=== PATIENT | female | born 1935 | race Caucasian/White ===

== ENCOUNTER 2016-11-30 17:44 | Emergency (ER) | payer OTHER ==
[2016-11-30 17:53] VITALS: BP 110/61; PULSE 83; TEMP 98.1; BMI 25.2
--- NOTE | 2016-11-30 18:04 | PDOC ---
History of Present Illness - General History Source: Patient, Old Records Exam Limitations: Other (very poor historian) <Paola Uriarte - Last Filed: 11/30/16 18:16> - General History Source: Patient Exam Limitations: No Limitations - History of Present Illness Initial Comments: 11/30/16 18:27 The patient is an 81 year old female with history of hypertension s/p thyroidectomy who arrives to the ED via EMS secondary to mechanical fall two days ago. The patient states that she was in the bathroom and moving faster than she normally does and became off balanced and fell down, hitting the back of her head on her bathroom floor. She denies going to the ED following the fall. In the ED she complains right sided neck pain and denies any LOC. However , she did not go to the ED afterwards. She denies any fever, chills, nausea, vomiting, diarrhea, cough, SOB, CP, or urinary symptoms. <Priscila Wilkinson - Last Filed: 11/30/16 20:06> - General Chief Complaint: Injury Stated Complaint: FALL Time Seen by Provider: 11/30/16 17:47 Past History - Past Medical History Psychiatric Problems: Yes Thyroid Disease: Yes - Psycho/Social/Smoking Cessation Hx Anxiety: Yes Suicidal Ideation: No Smoking History: Unknown if ever smoked Hx Alcohol Use: No Drug/Substance Use Hx: No Substance Use Type: None <Paola Uriarte - Last Filed: 11/30/16 18:16> <Priscila Wilkinson - Last Filed: 11/30/16 20:06> - Past Medical History Allergies/Adverse Reactions: Allergies Allergy/AdvReac Type Severity Reaction Status Date / Time cheese Allergy Verified 11/30/16 17:46 Home Medications: Ambulatory Orders Bethanechol Chloride [Urecholine -] 25 mg PO BID 11/30/16 Bimatoprost [Lumigan] 1 drop IO DAILY 11/30/16 Brinzolamide [Azopt] 15 ml OP BID 11/30/16 Clonazepam [Klonopin] 1 mg PO HS 11/30/16 Lamotrigine [Lamictal Xr] 75 mg PO HS 11/30/16 Levothyroxine [Synthroid -] 112 mcg PO DAILY 11/30/16 Lidocaine 5% Patch [Lidoderm Patch -] 1 patch TP DAILY 11/30/16 Phenelzine Sulfate [Nardil] 45 mg PO DAILY 11/30/16 Ranitidine HCl [Zantac] 150 mg PO BID 11/30/16 Trazodone HCl [Desyrel -] 250 mg PO HS 11/30/16 Review of Systems - Review of Systems Able to Perform ROS?: Yes Comments:: 11/30/16 18:35 GENERAL/CONSTITUTIONAL: No fever or chills. No weakness. HEAD, EYES, EARS, NOSE AND THROAT: No change in vision. No ear pain or discharge. No sore throat. CARDIOVASCULAR: No chest pain or shortness of breath. RESPIRATORY: No cough, wheezing, or hemoptysis. GASTROINTESTINAL: No nausea, vomiting, diarrhea or constipation. GENITOURINARY: No dysuria, frequency, or change in urination. MUSCULOSKELETAL: Present: right sided neck pain No joint or muscle swelling or pain. No back pain. SKIN: No rash NEUROLOGIC: No headache, vertigo, loss of consciousness, or change in strength/ sensation. ENDOCRINE: No increased thirst. No abnormal weight change. HEMATOLOGIC/LYMPHATIC: No anemia, easy bleeding, or history of blood clots. ALLERGIC/IMMUNOLOGIC: No hives or skin allergy. All Other Systems: Reviewed and Negative <Priscila Wilkinson - Last Filed: 11/30/16 20:06> *Physical Exam - Vital Signs Last Vital Signs Temp Pulse Resp BP Pulse Ox 98.1 F 83 16 110/61 99 11/30/16 17:45 11/30/16 17:45 11/30/16 17:45 11/30/16 17:45 11/30/16 17:45 <Paola Uriarte - Last Filed: 11/30/16 18:16> - Vital Signs Last Vital Signs Temp Pulse Resp BP Pulse Ox 98.1 F 83 16 110/61 99 11/30/16 17:45 11/30/16 17:45 11/30/16 17:45 11/30/16 17:45 11/30/16 17:45 - Physical Exam Comments: 11/30/16 18:36 GENERAL: Awake, alert, and fully oriented, in no acute distress HEAD: No signs of trauma EYES: PERRLA, EOMI, sclera anicteric, conjunctiva clear ENT: Auricles normal inspection, hearing grossly normal, nares patent, oropharynx clear without exudates. Moist mucosa NECK: Normal ROM, supple, no lymphadenopathy, JVD, or masses LUNGS: Breath sounds equal, clear to auscultation bilaterally. No wheezes, and no crackles HEART: Regular rate and rhythm, normal S1 and S2, no murmurs, rubs or gallops ABDOMEN: Soft, nontender, normoactive bowel sounds. No guarding, no rebound. No masses EXTREMITIES: Normal range of motion, no edema. No clubbing or cyanosis. No cords, erythema, or tenderness NEUROLOGICAL: Cranial nerves II through XII grossly intact. Normal speech, normal gait SKIN: Warm, Dry, normal turgor, no rashes or lesions noted. <Priscila Wilkinson - Last Filed: 11/30/16 20:06> ED Treatment Course - LABORATORY CBC & Chemistry Diagram: 11/30/16 18:17 11/30/16 18:17 - RADIOLOGY Radiograph Interpretation: 11/30/16 20:06 Head and C-spine CT as reviewed by Dr. Wan reports no acute pathology/ hemorrhage. <Priscila Wilkinson - Last Filed: 11/30/16 20:06> Medical Decision Making - Medical Decision Making 11/30/16 18:16 81 y/o female with h/o HTN, thyroid disease who presents to the ED with c/o right-sided neck pain s/p mechanical fall 2 days ago. She is neurologically non -focal and her GCS is 15. DDx includes but is not limited to: C-spine injury, TBI, UTI, PNA, electrolyte abnormality, toxic/metabolic derangement. Plan: 1. CT head and cervical spine 2. CXR 3. Urine analysis 4. Labs 5. Pain management 6. Observe and re-evaluate <Paola Uriarte - Last Filed: 11/30/16 18:16> *DC/Admit/Observation/Transfer - Attestations Physician Attestion: 11/30/16 18:21 I, Dr. Paola Uriarte, attest that the scribes documentation that appears above has been prepared under my direction and personally reviewed by me in its entirety. I confirmed that the note above accurately reflects all work, treatment, procedures, and medical decision-making performed by me. <Paola Uriarte - Last Filed: 11/30/16 18:16> - Attestations Scribe Attestion: 11/30/16 18:36 Documentation prepared by Priscila Wilkinson, acting as medical nurse for Paola Uriarte MD. <Priscila Wilkinson - Last Filed: 11/30/16 20:06> Diagnosis at time of Disposition: Neck pain, Fall - Discharge Dispostion Condition at time of disposition: Stable
[2016-11-30 18:39] LABS: WHITE BLOOD COUNT 6.6 K/mm3 (4.0-10.8)
[2016-11-30 18:49] LABS: EOSINOPHIL 0.1 % (0-4.5); MCH 27.9 pg (25.7-33.7); MCHC 32.8 g/dl (32.0-36.0); MEAN CELL VOLUME 84.9 fl (80-96); NEUTROPHILS 64.9 % (42.8-82.8); PLATELET COUNT 261 K/MM3 (134-434); RDW 13.6 % (11.6-15.6)
[2016-11-30 18:55] LABS: ALBUMIN 4.1 g/dl (3.5-5.0); ALK PHOS 66 U/L (32-92); ANION GAP 6 (8-16); BILIRUBIN,TOTAL 0.8 mg/dl (0.2-1.0); CALCIUM 9.3 mg/dl (8.4-10.2); CO2 30 mmol/L (22-28); CREATININE 0.7 mg/dl (0.6-1.3); GLUCOSE,RANDOM 88 mg/dl (74-106); MAGNESIUM 1.7 mg/dL (1.8-2.4); PHOSPHOROUS 3.4 mg/dl (2.5-4.6); SGOT/AST 18 U/L (10-42); SGPT/ALT 10 U/L (10-40); TOT PROT 6.3 g/dl (6.4-8.3)
[2016-11-30 18:58] LABS: CPK(DFH) 171 IU/L (26-140)
[2016-11-30 19:11] LABS: TROPONIN I (DFP) < 0.03 ng/ml (0.03-0.50)
[2016-11-30 19:52] LABS: CK INDEX FOR DOBBS 2.7 % (0.0-5.0)
--- NOTE | 2016-11-30 20:13 | PDOC ---
*Physical Exam - Vital Signs Last Vital Signs Temp Pulse Resp BP Pulse Ox 98.1 F 83 16 110/61 99 11/30/16 17:45 11/30/16 17:45 11/30/16 17:45 11/30/16 17:45 11/30/16 17:45 ED Treatment Course - LABORATORY CBC & Chemistry Diagram: 11/30/16 18:17 11/30/16 18:17 - ADDITIONAL ORDERS Additional order review: Laboratory Results 11/30/16 11/30/16 18:17 18:17 Sodium 136 Potassium 4.0 Chloride 100 Carbon Dioxide 30 H Anion Gap 6 L BUN 23 H Creatinine 0.7 Creat Clearance w eGFR > 60 Random Glucose 88 Calcium 9.3 Phosphorus 3.4 Magnesium 1.7 L Total Bilirubin 0.8 AST 18 ALT 10 Alkaline Phosphatase 66 Creatine Kinase 171 H Troponin I < 0.03 L Total Protein 6.3 L Albumin 4.1 Lipase 21 L 11/30/16 18:17 RBC 4.19 MCV 84.9 MCHC 32.8 RDW 13.6 MPV 8.0 Neutrophils % 64.9 Lymphocytes % 26.9 Monocytes % 7.1 Eosinophils % 0.1 Basophils % 1.0 Progress Note - Progress Note Progress Note: Care of this patient was transferred to [place] from Dr. Uriarte at 1900 hrs. Patient is an 81-year-old female who fell at home. Patient has a workup that is pretty much complete with the exception of a urinalysis. Plan is that if patient's urinalysis is normal patient will be discharged/ if patient does have a urinary tract infection that she will be treated and then discharged. *DC/Admit/Observation/Transfer Diagnosis at time of Disposition: Neck pain, Fall - Discharge Dispostion Disposition: HOME Condition at time of disposition: Stable Admit: No - Patient Instructions Additional Instructions: Someone should check on you once tonight during the night. You should be arousable to your Normal level of arousability for that time of the night. If you have been vomiting, have had a seizure, or you are unable to be aroused or the person checking on you is concerned that there has been a change in your mental status they should call 911 and have you brought back to the emergency department. You can take Tylenol as needed for pain. Return to the emergency department immediately with ANY new, persistent or worsening symptoms. Continue any medications as previously prescribed by your physician. You should follow up with your primary doctor as soon as possible regarding today's emergency department visit. . Please make sure your doctor reviews the results of your emergency evaluation. Thank you for coming to the Emergency Department today for your care. It was a pleasure to see you today. Please note that your evaluation is INCOMPLETE until you follow-up with your doctor.
[2016-11-30 20:47] LABS: URINE APPEARANCE Clear; URINE BILIRUBIN Negative (NEGATIVE); URINE BLOOD Negative (NEGATIVE); URINE COLOR YELLOW; URINE GLUCOSE (UA) Negative (NEGATIVE); URINE KETONE Negative (NEGATIVE); URINE LEUK ESTERASE Negative (NEGATIVE); URINE NITRITE Negative (NEGATIVE); URINE PROTEIN Negative (NEGATIVE); URINE UROBILINOGEN 0.2 (0.2-1.0)
--- NOTE | 2016-12-01 21:29 | EKG ---
Test Reason : Blood Pressure : / mmHG Vent. Rate : 072 BPM Atrial Rate : 072 BPM P-R Int : 166 ms QRS Dur : 102 ms QT Int : 388 ms P-R-T Axes : 061 001 045 degrees QTc Int : 424 ms POOR DATA QUALITY, INTERPRETATION MAY BE ADVERSELY AFFECTED SINUS RHYTHM WITH PREMATURE SUPRAVENTRICULAR COMPLEXES ANTEROSEPTAL INFARCT , AGE UNDETERMINED ABNORMAL ECG NO PREVIOUS ECGS AVAILABLE REPEAT EKG IF CLINICALLY INDICATED Confirmed by ISMAEL GRANADOS MD ([id number]) on 12/01/2016 9:29:31 PM Referred By: FANNY Confirmed By:ISMAEL GRANADOS MD
== END 2016-11-30 21:26 | disposition home or self-care (01) ==
LOC: FER 17:44
DX: M54.2 Cervicalgia (principal); W18.39XA Other fall on same level, initial encounter; Y93.89 Activity, other specified; Y92.89 Other specified places as the place of occurrence of the external cause; I10 Essential (primary) hypertension; E07.9 Disorder of thyroid, unspecified
CPT/HCPCS: 36415; 70450-TC; 71010-TC; 72125-TC; 80053; 81003; 82550; 82553; 83690; 83735; 84100; 84484; 85025; 93005; 99282-25

== ENCOUNTER 2017-03-25 23:58 | Emergency (ER) | payer OTHER ==
[2017-03-26] MEDS ORDERED: KETOROLAC TROMETHAMINE 30 MG/1 ML VIAL IM ONE (00:08)
--- NOTE | 2017-03-26 00:08 | PDOC ---
History of Present Illness - General Chief Complaint: Injury Stated Complaint: TRIP AND FALL Time Seen by Provider: 03/26/17 00:02 History Source: Patient Exam Limitations: No Limitations - History of Present Illness Initial Comments: 03/26/17 00:17 This is an elderly 81-year-old female who lives in an assisted living facility with an aide. Patient said she was ambulating in her bedroom she lost her balance and fell hitting her ribs on a chair and landing on the floor. Patient said she did not hit her head, she did not pass out and it was a mechanical fall. Patient's helped her up. Patient is complaining of pain in her ribs exteriorly right. Patient did not take anything for the pain. Patient denies any shortness of breath palpitations or chest pain. PAST MEDICAL HISTORY: Dementia, depression, thyroid disease PAST SURGICAL HISTORY: no significant history FAMILY HISTORY: no pertinant history SOCIAL HISTORY: Pt lives in assisted-living facility with family and is retired MEDICATIONS: reviewed ALLERGIES: As per nursing notes Review of Systems General: No fevers or chills, no weakness, no weight loss HEENT: No change in vision. No sore throat,. No ear pain CardioVascular: No chest pain or shortness of breath Respiratory:No cough, or wheezing. right posterior rib pain Gastrointestinal: no nausea, vomitting, diarrhea or constipation, No rectal bleeding Genitourinary: No dysuria, hematuria, or frequency Musculoskeletal: No joint or muscle pain or swelling Neurologic: No headache, vertigo, dizziness or loss of consciousness Psychiatric: nor depression Skin: No rashes or easy bruising will be discharged back to her living facility. Observation O I think she is altered mental status Endocrine: no increased thirst or abnormal weight change Allergic: no skin or latex allergy All other systems reviewed and normal Exam: General: Well-nourished well-developed individual, no acute distress HEENT: Throat: Normal, tonsils normal, no erythema or exudate Neck: Supple, no meningeal signs, no lymphadenopathy Eyes::Pupils equal reactive and round, extraocular motion intact Chest: There is tenderness on palpation posterior ribs on the right approximately ninth 10th and 11th rib, there is no flail segmen. Cardiac: S1-S2 normal, regular rate and rhythm, no murmurs rubs or gallops Respiratory: Lungs clear to auscultation bilateral Abdomen: Soft, nondistended, normal bowel sounds, nontender to palpation diffusely Extremities: Warm, dry, no cyanosis, clubbing, or edema Skin: No rashes Neuro: Alert and oriented x3, nonfocal exam, grossly intact, normal gait Psych: Normal mood and affect 03/26/17 00:58 Checks x-ray no acute pathology. Rib x-ray: ??? Fracture CT scan of the chest: No rib fractures, there are compression fractures at T2- T4 T11 and L1 noted of indeterminate age there is an old posterior left rib fracture. No pneumothorax or pneumomediastinum the or pulmonary contusions. Head CT no acute pathology Assessment and plan: This is a 81-year-old female who fell hitting her back on a chair and then hitting her face on the floor. Patient had a complete workup Which was unremarkable for any acute process or pathology. However her chest x- ray appeared to have a rib fracture so a CAT scan was done and on CAT scan that shows that rib fracture was old there was some questionable nondisplaced rib fractures of uncertain etiology in an area where patient did not have any pain so either they were old or artifactual. Patient discharged back to her living facility Past History - Past Medical History Allergies/Adverse Reactions: Allergies Allergy/AdvReac Type Severity Reaction Status Date / Time cheese Allergy Verified 11/30/16 17:46 Home Medications: Ambulatory Orders Bethanechol Chloride [Urecholine -] 25 mg PO BID 11/30/16 Bimatoprost [Lumigan] 1 drop IO DAILY 11/30/16 Brinzolamide [Azopt] 15 ml OP BID 11/30/16 Clonazepam [Klonopin] 1 mg PO HS 11/30/16 Lamotrigine [Lamictal Xr] 75 mg PO HS 11/30/16 Levothyroxine [Synthroid -] 112 mcg PO DAILY 11/30/16 Lidocaine 5% Patch [Lidoderm Patch -] 1 patch TP DAILY 11/30/16 Phenelzine Sulfate [Nardil] 45 mg PO DAILY 11/30/16 Ranitidine HCl [Zantac] 150 mg PO BID 11/30/16 Trazodone HCl [Desyrel -] 250 mg PO HS 11/30/16 Psychiatric Problems: Yes Thyroid Disease: Yes - Suicide/Smoking/Psychosocial Hx Smoking History: Unknown if ever smoked Hx Alcohol Use: No Drug/Substance Use Hx: No Substance Use Type: None *DC/Admit/Observation/Transfer Diagnosis at time of Disposition: Contusion of face Qualifiers: Encounter type: initial encounter Qualified Code(s): S00.83XA - Contusion of other part of head, initial encounter - Discharge Dispostion Disposition: HOME Condition at time of disposition: Stable - Referrals - Patient Instructions Additional Instructions: Tylenol or Motrin as needed for pain Someone should check on you once tonight during the night. You should be arousable to your Normal level of arousability for that time of the night. If you have been vomiting, have had a seizure, or you are unable to be aroused or the person checking on you is concerned that there has been a change in your mental status they should call 911 and have you brought back to the emergency department. You can take Tylenol as needed for pain. Return to the emergency department immediately with ANY new, persistent or worsening symptoms. Continue any medications as previously prescribed by your physician. You should follow up with your primary doctor as soon as possible regarding today's emergency department visit. . Please make sure your doctor reviews the results of your emergency evaluation. Thank you for coming to the Emergency Department today for your care. It was a pleasure to see you today. Please note that your evaluation is INCOMPLETE until you follow-up with your doctor. - Post Discharge Activity
[2017-03-26] MEDS ORDERED: KETOROLAC TROMETHAMINE 30 MG/1 ML VIAL ONE (00:14)
[2017-03-26 00:22] VITALS: BP 140/81; PULSE 71; TEMP 97.4; BMI 28.3
== END 2017-03-26 05:10 | disposition home or self-care (01) ==
LOC: FER 23:58
PROC: 3E0233Z Introduction of Anti-inflammatory into Muscle, Percutaneous Approach (ICD-10-PCS; principal; 2017-03-25)
DX: S00.83XA Contusion of other part of head, initial encounter (principal); W01.0XXA Fall on same level from slipping, tripping and stumbling without subsequent striking against object, initial encounter; Y93.89 Activity, other specified; Y92.092 Bedroom in other non-institutional residence as the place of occurrence of the external cause; E07.9 Disorder of thyroid, unspecified; F99 Mental disorder, not otherwise specified
CPT/HCPCS: 70450-TC; 71020-TC; 71101-TC-RT; 71250-TC; 99281-25

== ENCOUNTER 2018-03-29 18:19 | Observation (INO) | payer OTHER ==
--- NOTE | 2018-03-29 18:26 | PDOC ---
History of Present Illness - General Chief Complaint: Injury Stated Complaint: FALL,HEMATOMA TO HEAD - History of Present Illness Initial Comments: The patient is a 82F w/ a history of hypothyroidism who presents for evaluation s/p fall from standing with likely LOC. Patient states she was standing at her kitchen sink and the next thing she remembers is being on her floor. She denied dizziness/lightheadedness, chest pain, or palpitations prior to her fall. She triggered her own fall alert button s/p fall. She endorses pain and swelling on the R parietal region of her head. She has a history of falls in the past. Not currently on AC. S/p fall she denies weakness/changes in sensation, blurry vision, chest pain, SOB, N/V, dizziness, or pain other than where she hit her head. No bleeding was observed by EMS at the scene. Patient lives at independent living ([facility]) PCP: Dr. Aldo Garcia ([facility]) 03/29/18 18:21 Past History - Past Medical History Allergies/Adverse Reactions: Allergies Allergy/AdvReac Type Severity Reaction Status Date / Time cheese Allergy Verified 03/29/18 18:20 Home Medications: Ambulatory Orders Bimatoprost [Lumigan] 1 drop OP DAILY 11/30/16 Clonazepam [Klonopin] 0.25 mg PO BID 11/30/16 Levothyroxine [Synthroid -] 112 mcg PO DAILY 11/30/16 Phenelzine Sulfate [Nardil] 30 mg PO BID 11/30/16 traZODone HCL [Desyrel -] 50 mg PO HS 11/30/16 Cyanocobalamin [Vitamin B12 -] 1,000 mcg PO DAILY 03/29/18 Docusate Sodium [Colace] 100 mg PO TID 03/29/18 Lamotrigine [Lamictal] 2 tab PO BID 03/29/18 COPD: No Psychiatric Problems: Yes Thyroid Disease: Yes - Suicide/Smoking/Psychosocial Hx Smoking History: Unknown if ever smoked Have you smoked in the past 12 months: No Hx Alcohol Use: No Drug/Substance Use Hx: No Substance Use Type: None Review of Systems - Review of Systems Able to Perform ROS?: Yes Comments:: GENERAL/CONSTITUTIONAL: No fever or chills. No weakness HEAD, EYES, EARS, NOSE AND THROAT: No change in vision. No ear pain or discharge. No sore throat CARDIOVASCULAR: No chest pain or shortness of breath RESPIRATORY: No cough, wheezing, or hemoptysis GASTROINTESTINAL: No nausea, vomiting, diarrhea or constipation GENITOURINARY: No dysuria, frequency, or change in urination MUSCULOSKELETAL: per HPI SKIN: No rash NEUROLOGIC: No vertigo or change in strength/sensation ENDOCRINE: No increased thirst. No abnormal weight change HEMATOLOGIC/LYMPHATIC: No anemia, easy bleeding, or history of blood clots ALLERGIC/IMMUNOLOGIC: No hives or skin allergy 03/29/18 18:36 Is the patient limited Romanian proficient: No *Physical Exam - Vital Signs Vital Signs Temp Pulse Resp BP Pulse Ox 98 F 76 18 150/88 95 03/29/18 18:20 03/29/18 18:20 03/29/18 18:20 03/29/18 18:20 03/29/18 18:20 03/29/18 18:38 - Physical Exam Comments: GENERAL: Awake, alert, in no acute distress HEAD: R parietal hematoma w/o obvious fx or depression EYES: PERRLA, EOMI, sclera anicteric, conjunctiva clear ENT: Hearing grossly normal, nares patent, oropharynx clear without exudates LUNGS: No distress, speaks full sentences, clear to auscultation bilaterally HEART: Regular rate and rhythm, normal S1 and S2, no murmurs appreciated, peripheral pulses normal and equal bilaterally ABDOMEN: Soft, nontender, normoactive bowel sounds. No guarding, no rebound EXTREMITIES : Normal inspection, Normal range of motion, no edema. No clubbing or cyanosis NEUROLOGICAL: Cranial nerves II through XII grossly intact. Normal speech, no focal sensorimotor deficits 03/29/18 18:27 Medical Decision Making - Medical Decision Making The patient is an 82F w/ a history of hypothyroidism, depression, and glaucoma who presents for evaluation s/p fall from standing w/ LOC at her independent living facility ([facility]) ED course Will need syncope w/u, including CMP, CBC, UA, UCx, cardiac enzymes ECG CXR CT Head Will plan for tele obs admission, and final dispo pending results Patient currently A&Ox3 w/o focal neurological deficit Tylenol 975mg PO once for pain ECG w/o evidence of acute ischemia, QTc wnl, no PVCs 03/29/18 18:40 I have transferred care of the patient to Dr. Go and discussed the clinical presentation, work-up and ED course thus far. 03/29/18 19:00 *DC/Admit/Observation/Transfer Diagnosis at time of Disposition: Syncope Qualifiers: Syncope type: unspecified Qualified Code(s): R55 - Syncope and collapse Fall from standing Qualifiers: Encounter type: initial encounter Qualified Code(s): W19.XXXA - Unspecified fall, initial encounter - Discharge Dispostion Condition at time of disposition: Fair Decision to Admit order: Yes - Referrals Referrals: Aldo Garcia [Non Staff, Medical] - - Patient Instructions - Post Discharge Activity
[2018-03-29 18:34] VITALS: BMI 20.1
[2018-03-29] MEDS ORDERED: ACETAMINOPHEN 325 MG TABLET (FP) PO ONE (18:45)
--- NOTE | 2018-03-29 18:46 | PDOC ---
Attending Attestation - Physicial Exam PE: 03/29/18 18:46 MY NORMAL TRAUMA EXAM GENERAL: Patient is alert and in no acute distress. Speech is clear and appropriate. HEAD: +4 cm hematoma to right parietal/occipital scalp without laceration. nontender. HEENT: Pupils are equal round and reactive to light, extraocular movements are intact.No facial deformity/tenderness, no septal hematoma. The oropharynx is clear. NECK: The trachea is midline, there is no stridor. There is no midline cervical spine tenderness, full range of motion of neck. CHEST: Nontender, no ecchymosis or abrasions. HEART: +2 out of 6 holosystolic murmur. S1-S2, regular rate and rhythm. LUNGS: Clear to auscultation bilaterally. Symmetric chest rise. ABDOMEN: Soft/nontender/nondistended. Bowel sounds are normal. There is no abdominal or flank ecchymosis. BACK/PELVIS: There is no midline spine tenderness or step-off. Pelvis is stable and nontender. EXTREMITIES: There is no extremity deformity or joint swelling. No focal bony tenderness or deformity in the remaining joints or extremities. Throughout. 2+ distal pulses throughout. NEURO: Alert and oriented x3. Cranial nerves II through XII are intact. 5 out of 5 motor strength x4 extremities. Wovaub-ydea-axmvcg is intact. No pronator drift. Gait is stable. SKIN: No abrasions/lacerations. PSYCH: Affect is appropriate. <Willi Alba - Last Filed: 03/29/18 18:46> - Resident Resident Name: Juan M Torres - ED Attending Attestation I have performed the following: I have examined & evaluated the patient, The case was reviewed & discussed with the resident, I agree w/resident's findings & plan - HPI HPI: 03/29/18 18:42 82-year-old female from [facility] brought in by ambulance status post fall with head injury. Pt has been in [facility], has no recollection of the fall. States she recalls standing at her bathroom sink, and next thing she knew she was in the bathtub. Pt hit her lifealert and EMS arrived. Now complaining of isolated scalp pain to where she hit her head, no headache/vision change/ speech change/neck pain/focal weakness/n/v. denies any cp/sob/palp/diaphoresis. denies any recent infectious complaints. no h/o syncope - Medical Decision Making 03/29/18 18:45 82-year-old [facility] with head [facility], no recollection of fall suspicious for syncope. Neurologically intact, hemodynamically stable without evidence of SIRS or sepsis, trauma exam is localized to the scalp. Will need syncope workup and cardiac monitoring. Labs, EKG, urinalysis, chest x-ray CT head Telemetry observation Patient was signed out to the oncoming ED physician to follow-up the results, reassess the patient, and admit accordingly. <Jose Grant - Last Filed: 03/29/18 18:56> Heart Score/ECG Review #1 ECG reviewed & interpreted by me at: 18:51 General ECG Interpretation: Sinus Rhythm, Normal Rate (62), Normal Intervals ( qtc 422), No acute ischemic changes (isolated TWI AVL, anteroseptal Q waves) Compared to previous ECG there are: No significant change (c/w 11/30/16, TWI AVL new) <Jose Grant - Last Filed: 03/29/18 18:56>
[2018-03-29] MEDS ORDERED: ACETAMINOPHEN 325 MG TABLET (FP) ONE (18:54)
[2018-03-29 19:07] LABS: URINE APPEARANCE Clear; URINE BILIRUBIN Negative (NEGATIVE); URINE COLOR Yellow; URINE GLUCOSE (UA) Negative (NEGATIVE); URINE KETONE Negative (NEGATIVE); URINE LEUK ESTERASE Negative (NEGATIVE); URINE NITRITE Negative (NEGATIVE); URINE PROTEIN 1+ (NEGATIVE); URINE UROBILINOGEN 0.2 (0.2-1.0)
[2018-03-29 19:08] LABS: EPI CELLS 1+ /HPF; URINE BACTERIA 1+ /hpf (NEGATIVE); URINE WBC 0-2 (0-5)
[2018-03-29 19:45] LABS: HEMATOCRIT 37.6 % (32.4-45.2); HEMOGLOBIN 12.7 GM/dl (10.7-15.3); MCH 28.3 pg (25.7-33.7); MCHC 33.9 g/dl (32.0-36.0); MEAN CELL VOLUME 83.6 fl (80-96); MEAN PLT VOLUME 8.2 fl (7.5-11.1); PLATELET COUNT 291 K/MM3 (134-434); RDW 14.9 % (11.6-15.6); WHITE BLOOD COUNT 7.9 K/mm3 (4.0-10.8)
--- NOTE | 2018-03-29 20:09 | PDOC ---
*Physical Exam - Vital Signs Last Vital Signs Temp Pulse Resp BP Pulse Ox 98.1 F 72 14 158/90 96 03/29/18 19:42 03/29/18 19:42 03/29/18 19:42 03/29/18 19:42 03/29/18 19:42 ED Treatment Course - LABORATORY CBC & Chemistry Diagram: 03/29/18 19:17 03/29/18 20:00 - ADDITIONAL ORDERS Additional order review: Laboratory Results 03/29/18 03/29/18 03/29/18 19:17 19:17 19:17 Sodium Cancelled Potassium Cancelled Chloride Cancelled Carbon Dioxide Cancelled Anion Gap Cancelled BUN Cancelled Creatinine Cancelled Creat Clearance w eGFR Cancelled Random Glucose Cancelled Calcium Cancelled Total Bilirubin Cancelled AST Cancelled ALT Cancelled Alkaline Phosphatase Cancelled Creatine Kinase 89 Cancelled Troponin I < 0.03 Cancelled Total Protein Cancelled Albumin Cancelled Urine Color Urine Appearance Urine pH Ur Specific [place] Urine Protein Urine Glucose (UA) Urine Ketones Urine Blood Urine Nitrite Urine Bilirubin Urine Urobilinogen Ur Leukocyte Esterase Urine RBC Urine WBC Ur Epithelial Cells Urine Bacteria 03/29/18 18:50 Sodium Potassium Chloride Carbon Dioxide Anion Gap BUN Creatinine Creat Clearance w eGFR Random Glucose Calcium Total Bilirubin AST ALT Alkaline Phosphatase Creatine Kinase Troponin I Total Protein Albumin Urine Color Yellow Urine Appearance Clear Urine pH 6.0 Ur Specific [place] 1.025 Urine Protein 1+ H Urine Glucose (UA) Negative Urine Ketones Negative Urine Blood 1+ H Urine Nitrite Negative Urine Bilirubin Negative Urine Urobilinogen 0.2 Ur Leukocyte Esterase Negative Urine RBC 5-10 Urine WBC 0-2 Ur Epithelial Cells 1+ Urine Bacteria 1+ 03/29/18 19:17 RBC 4.50 MCV 83.6 MCHC 33.9 RDW 14.9 MPV 8.2 - Medications Given in the ED: ED Medications Discontinued Medications Generic Name Dose Route Start Last Admin Trade Name Freq PRN Reason Stop Dose Admin Acetaminophen 975 mg 03/29/18 18:45 03/29/18 18:56 Tylenol - PO 03/29/18 18:46 975 mg ONCE ONE Administration Progress Note - Progress Note Progress Note: Care of this patient was transferred to ut at [address] Grant. Patient had a syncopal event while at her assisted living home. Patient is unable to recall passing out about remembers standing at the sink and then waking up in her tub with a hematoma on her head. Patient has a workup in progress. 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 21:00 Patient has been calling him aware of her situation and the plan. Her is a physician. Hospital services was contacted and patient wasn't accepted by their service for admission to a observation telemetry bed for syncope. . Signout given to the admitting hospitalist, who accepts the patient. Discussed plan with the patient family at bedside, Patient and family aware of the plan and agree. Patient is clinically unchanged and stable. *DC/Admit/Observation/Transfer Diagnosis at time of Disposition: Syncope Qualifiers: Syncope type: unspecified Qualified Code(s): R55 - Syncope and collapse Fall from standing Qualifiers: Encounter type: initial encounter Qualified Code(s): W19.XXXA - Unspecified fall, initial encounter - Discharge Dispostion Condition at time of disposition: Fair Decision to Admit order: Yes - Referrals Referrals: Aldo Garcia [Primary Care Provider] - - Patient Instructions - Post Discharge Activity
[2018-03-29] MEDS ORDERED: traMADol HCL 50 MG TABLET PO ONE (20:32)
[2018-03-29 20:33] LABS: ALBUMIN 3.7 g/dl (3.5-5.0); ALK PHOS 82 U/L (32-92); ANION GAP 7 MMOL/L (8-16); BILIRUBIN,TOTAL 0.4 mg/dl (0.2-1.0); BLOOD UREA NITROGEN 26 mg/dl (7-18); CHLORIDE 105 mmol/L (98-107); CO2 28 mmol/L (22-28); CREATININE < 0.6 mg/dl (0.6-1.3); GLUCOSE,RANDOM 96 mg/dl (74-106); POTASSIUM 4.2 mmol/L (3.5-5.1); SGOT/AST 12 U/L (10-42); SGPT/ALT 10 U/L (10-40); SODIUM 140 mmol/L (136-145); TOT PROT 6.5 g/dl (6.4-8.3)
[2018-03-29] MEDS ORDERED: traMADol HCL 50 MG TABLET ONE (20:44)
--- NOTE | 2018-03-29 22:25 | HP ---
CHIEF COMPLAINT: Syncope, collapse PCP: Dr. Garcia HISTORY OF PRESENT ILLNESS: 82F w/ a history of hypothyroidism who presented for evaluation s/p fall when she was standing next to her sink in her apartment on 03/29. This occurred around the early afternoon. She Denied any dizziness, vertigo, chest pain prior to her fall and does not exactly remember what she was doing. She hit the right side of her head. She recalls awakening shortly after but cannot specify exact time. Patient appears to have cardiac device on cxr but does not remember why it was placed. Pt at baseline ambulates with walker. ER course was notable for: (1) head ct (2) tramadol (3) ekg Recent Travel: no PAST MEDICAL HISTORY: hypothyroidism PAST SURGICAL HISTORY: no Social History: Smoking: no Alcohol: no Drugs: no Family History: none Allergies cheese Allergy (Verified 03/29/18 18:20) HOME MEDICATIONS: Home Medications Medication Instructions Recorded Bimatoprost [Lumigan] 1 drop OP DAILY 11/30/16 Clonazepam [Klonopin] 0.25 mg PO BID 11/30/16 Levothyroxine [Synthroid -] 112 mcg PO DAILY 11/30/16 Phenelzine Sulfate [Nardil] 30 mg PO BID 11/30/16 traZODone HCL [Desyrel -] 50 mg PO HS 11/30/16 Cyanocobalamin [Vitamin B12 -] 1,000 mcg PO DAILY 03/29/18 Docusate Sodium [Colace] 100 mg PO TID 03/29/18 Lamotrigine [Lamictal] 2 tab PO BID 03/29/18 REVIEW OF SYSTEMS CONSTITUTIONAL: Absent: fever, chills, diaphoresis, generalized weakness, malaise, loss of appetite, weight change Present- pain to right side of head HEENT: Absent: rhinorrhea, nasal congestion, throat pain, throat swelling, difficulty swallowing, mouth swelling, ear pain, eye pain, visual changes CARDIOVASCULAR: Absent: chest pain, syncope, palpitations, irregular heart rate, lightheadedness , peripheral edema RESPIRATORY: Absent: cough, shortness of breath, dyspnea with exertion, orthopnea, wheezing, stridor, hemoptysis GASTROINTESTINAL: Absent: abdominal pain, abdominal distension, nausea, vomiting, diarrhea, constipation, melena, hematochezia GENITOURINARY: Absent: dysuria, frequency, urgency, hesitancy, hematuria, flank pain, genital pain MUSCULOSKELETAL: Absent: myalgia, arthralgia, joint swelling, back pain, neck pain SKIN: Absent: rash, itching, pallor HEMATOLOGIC/IMMUNOLOGIC: Absent: easy bleeding, easy bruising, lymphadenopathy, frequent infections ENDOCRINE: Absent: unexplained weight gain, unexplained weight loss, heat intolerance, cold intolerance NEUROLOGIC: Absent: focal weakness or paresthesias, dizziness, unsteady gait, seizure, mental status changes, bladder or bowel incontinence PSYCHIATRIC: Absent: anxiety, depression, suicidal or homicidal ideation, hallucinations. PHYSICAL EXAMINATION Vital Signs - 24 hr 03/29/18 03/29/18 18:20 19:42 Temperature 98 F 98.1 F Pulse Rate 76 Pulse Rate [ 72 Apical] Respiratory 18 14 Rate Blood Pressure 150/88 Blood Pressure 158/90 [Arm] O2 Sat by Pulse 95 96 Oximetry (%) GENERAL: Awake, alert, and fully oriented, in no acute distress. HEAD: tenderness on palpation of right parietal scalp EYES: Pupils equal, round and reactive to light, extraocular movements intact, sclera anicteric, conjunctiva clear. No lid lag. EARS, NOSE, THROAT: Ears normal, nares patent, oropharynx clear without exudates. Moist mucous membranes. NECK: Normal range of motion, supple without lymphadenopathy, JVD, or masses. LUNGS: Breath sounds equal, clear to auscultation bilaterally. No wheezes, and no crackles. No accessory muscle use. HEART: Regular rate and rhythm, normal S1 and S2 without murmur, rub or gallop. ABDOMEN: Soft, nontender, not distended, normoactive bowel sounds, no guarding, no rebound, no masses. No hepatomegaly or splenomegaly. MUSCULOSKELETAL: Normal range of motion at all joints. No bony deformities or tenderness. No CVA tenderness. UPPER EXTREMITIES: 2+ pulses, warm, well-perfused. No cyanosis. No clubbing. No peripheral edema. LOWER EXTREMITIES: 2+ pulses, warm, well-perfused. No calf tenderness. No peripheral edema. NEUROLOGICAL: Cranial nerves II-XII intact. Normal speech PSYCHIATRIC: Cooperative. Good eye contact. Appropriate mood and affect. SKIN: Warm, dry, normal turgor, no rashes or lesions noted, normal capillary refill. Laboratory Results - last 24 hr 03/29/18 03/29/18 03/29/18 18:50 19:17 19:17 WBC 7.9 RBC 4.50 Hgb 12.7 Hct 37.6 MCV 83.6 MCH 28.3 MCHC 33.9 RDW 14.9 Plt Count 291 MPV 8.2 Sodium Cancelled Potassium Cancelled Chloride Cancelled Carbon Dioxide Cancelled Anion Gap Cancelled BUN Cancelled Creatinine Cancelled Creat Clearance w eGFR Cancelled Random Glucose Cancelled Calcium Cancelled Total Bilirubin Cancelled AST Cancelled ALT Cancelled Alkaline Phosphatase Cancelled Creatine Kinase Cancelled Troponin I Cancelled Total Protein Cancelled Albumin Cancelled Urine Color Yellow Urine Appearance Clear Urine pH 6.0 Ur Specific [place] 1.025 Urine Protein 1+ H Urine Glucose (UA) Negative Urine Ketones Negative Urine Blood 1+ H Urine Nitrite Negative Urine Bilirubin Negative Urine Urobilinogen 0.2 Ur Leukocyte Esterase Negative Urine RBC 5-10 Urine WBC 0-2 Ur Epithelial Cells 1+ Urine Bacteria 1+ 03/29/18 03/29/18 03/29/18 19:17 19:17 20:00 WBC RBC Hgb Hct MCV MCH MCHC RDW Plt Count MPV Sodium 140 Potassium 4.2 Chloride 105 Carbon Dioxide 28 Anion Gap 7 L BUN 26 H Creatinine < 0.6 L Creat Clearance w eGFR > 60 Random Glucose 96 Calcium 9.0 Total Bilirubin 0.4 AST 12 D ALT 10 Alkaline Phosphatase 82 Creatine Kinase 89 Troponin I < 0.03 Total Protein 6.5 Albumin 3.7 Urine Color Urine Appearance Urine pH Ur Specific [place] Urine Protein Urine Glucose (UA) Urine Ketones Urine Blood Urine Nitrite Urine Bilirubin Urine Urobilinogen Ur Leukocyte Esterase Urine RBC Urine WBC Ur Epithelial Cells Urine Bacteria EKG reviewed- nsr, possible old inferior infarct Head CT - no intracranial bleed or bone fracture, large right occipital scalp hematoma ASSESSMENT/PLAN: #82yo woman with hypothyroidism s/p syncope with trauma to right side of head. Uncertain cause of syncope but may be vasovagal, orthostatic, mechanical fall. Unlikely ACS- trop neg and no acute ischemic changes on ekg. #Hypothyroidism on levothyroxine #HTN - uncontrolled -tele/obs -avoid heparin or aspirin -tramadol prn for pain -echo -fall precautions -bed rest -cardiac consult for cardiac device interrogation -check orthostatics -check tsh -PT consult -c/w home dose levothyroxine -start amlodipine 2.5mg po daily -2g Na diet -SCDs for dvt ppx Visit type - Emergency Visit Emergency Visit: Yes ED Registration Date: 03/29/18 Care time: The patient presented to the Emergency Department on the above date and was hospitalized for further evaluation of their emergent condition. - New Patient This patient is new to me today: Yes Date on this admission: 03/30/18 - Critical Care Critical Care patient: No
--- NOTE | 2018-03-29 23:54 | CON.CARD ---
Consult Consult Specialty:: Cardiology Reason for Consultation:: syncope - History of Present Illness History of Present Illness: 82-year-old female from [facility] brought in by ambulance status post fall with head injury. Pt has been in [facility], has no recollection of the fall. States she recalls standing at her bathroom sink, and next thing she knew she was in the bathtub. Pt hit her lifealert and EMS arrived. Now complaining of isolated scalp pain to where she hit her head, no headache/vision change/ speech change/neck pain/focal weakness/n/v. denies any cp/sob/palp/diaphoresis. denies any recent infectious complaints. no h/o syncope - History Source History Provided By: Patient, Medical Record - Past Medical History Cardio/Vascular: Yes: CAD, Other (old DC) Endocrine: Yes: Hypothyroidism - Alcohol/Substance Use Hx Alcohol Use: No - Smoking History Smoking history: Unknown if ever smoked Have you smoked in the past 12 months: No Home Medications - Allergies Allergies/Adverse Reactions: Allergies Allergy/AdvReac Type Severity Reaction Status Date / Time cheese Allergy Verified 03/29/18 18:20 - Home Medications Home Medications: Ambulatory Orders Bimatoprost [Lumigan] 1 drop OP DAILY 11/30/16 Clonazepam [Klonopin] 0.25 mg PO BID 11/30/16 Levothyroxine [Synthroid -] 112 mcg PO DAILY 11/30/16 Phenelzine Sulfate [Nardil] 30 mg PO BID 11/30/16 traZODone HCL [Desyrel -] 50 mg PO HS 11/30/16 Cyanocobalamin [Vitamin B12 -] 1,000 mcg PO DAILY 03/29/18 Docusate Sodium [Colace] 100 mg PO TID 03/29/18 Lamotrigine [Lamictal] 2 tab PO BID 03/29/18 Review of Systems - Review of Systems Constitutional: reports: No Symptoms Eyes: reports: No Symptoms HENT: reports: No Symptoms Neck: reports: No Symptoms Cardiovascular: reports: No Symptoms Respiratory: reports: No Symptoms Gastrointestinal: reports: No Symptoms Genitourinary: reports: No Symptoms Breasts: reports: No Symptoms Reported Musculoskeletal: reports: No Symptoms Integumentary: reports: No Symptoms Neurological: reports: Syncope Endocrine: reports: No Symptoms Hematology/Lymphatic: reports: No Symptoms Psychiatric: reports: No Symptoms Vital Signs: Vital Signs Temperature 98.1 F 03/29/18 19:42 Pulse Rate 77 03/29/18 23:31 Respiratory Rate 16 03/29/18 23:31 Blood Pressure 87/55 L 03/29/18 23:31 O2 Sat by Pulse Oximetry (%) 94 L 03/29/18 23:31 Constitutional: Yes: Well Nourished, No Distress, Calm Eyes: Yes: WNL, Conjunctiva Clear, EOM Intact HENT: Yes: WNL, Atraumatic, Normocephalic Neck: Yes: WNL, Supple, Trachea Midline Respiratory: Yes: WNL, Regular, CTA Bilaterally Gastrointestinal: Yes: WNL, Normal Bowel Sounds Renal/: Yes: WNL Cardiovascular: Yes: WNL, Regular Rate and Rhythm JVD: No Heart Sounds: Yes: S1, S2 Murmur: Yes: Systolic Murmur, Grade 1 Musculoskeletal: Yes: WNL Extremities: Yes: WNL Integumentary: Yes: WNL Neurological: Yes: WNL, Alert, Oriented ...Motor Strength: WNL Psychiatric: Yes: WNL, Alert, Oriented - Other Data Labs, Other Data: CBC, BMP 03/29/18 19:17 03/29/18 20:00 Troponin, BNP 03/29/18 03/29/18 19:17 19:17 Troponin I Cancelled < 0.03 Troponin, BNP 03/29/18 03/29/18 19:17 19:17 Troponin I Cancelled < 0.03 Imaging - Results Chest X-ray: Image Reviewed (no i/e) EKG: Image Reviewed (sr old anterio septal mi) Problem List - Problems (1) Fall from standing Code(s): W19.XXXA - UNSPECIFIED FALL, INITIAL ENCOUNTER Qualifiers: Encounter type: initial encounter Qualified Code(s): W19.XXXA - Unspecified fall, initial encounter (2) Syncope Code(s): R55 - SYNCOPE AND COLLAPSE Qualifiers: Syncope type: unspecified Qualified Code(s): R55 - Syncope and collapse (3) Contusion of face Code(s): S00.83XA - CONTUSION OF OTHER PART OF HEAD, INITIAL ENCOUNTER Qualifiers: Encounter type: initial encounter Qualified Code(s): S00.83XA - Contusion of other part of head, initial encounter (4) Fall Code(s): W19.XXXA - UNSPECIFIED FALL, INITIAL ENCOUNTER (5) Neck pain Code(s): M54.2 - CERVICALGIA Assessment/Plan syncope hypothyroidism cad ? old anteroseptal DC on EKG Plan r/o mi echo c. duplex neuro eval/consultation
[2018-03-30] MEDS ORDERED: traMADol HCL 50 MG TABLET PO PRN (00:08)
[2018-03-30] MEDS ORDERED: traZODone HCL 50 MG TABLET (FP) PO SCH (00:15)
[2018-03-30] MEDS: clonazePAM 0.5 MG TABLET PO SCH ×2 (00:15→09:24)
[2018-03-30] MEDS: DOCUSATE SODIUM 100 MG CAPSULE (FP) PO SCH ×2 (06:46→13:52)
[2018-03-30] MEDS ORDERED: LEVOTHYROXINE NA 112 MCG TABLET (FP) PO SCH (07:00)
[2018-03-30 08:45] LABS: BASO % 0.2 % (0-2.0); EOS % 0.1 % (0-4.5); HEMATOCRIT 35.9 % (32.4-45.2); HEMOGLOBIN 11.9 GM/dl (10.7-15.3); LYMPH % 26.6 % (8-40); MCH 28.2 pg (25.7-33.7); MCHC 33.1 g/dl (32.0-36.0); MEAN CELL VOLUME 85.1 fl (80-96); MEAN PLT VOLUME 7.9 fl (7.5-11.1); MONO % 7.8 % (3.8-10.2); NEUT % 65.3 % (42.8-82.8); PLATELET COUNT 284 K/MM3 (134-434); RBC 4.23 M/mm3 (3.60-5.2); RDW 14.7 % (11.6-15.6); WHITE BLOOD COUNT 7.4 K/mm3 (4.0-10.8)
[2018-03-30 08:46] LABS: ANION GAP 4 MMOL/L (8-16); BLOOD UREA NITROGEN 25 mg/dl (7-18); CALCIUM 9.3 mg/dl (8.4-10.2); CHLORIDE 107 mmol/L (98-107); CO2 31 mmol/L (22-28); GLUCOSE,RANDOM 93 mg/dl (74-106); POTASSIUM 4.4 mmol/L (3.5-5.1); SODIUM 142 mmol/L (136-145)
[2018-03-30 08:52] LABS: CREATININE < 0.6 mg/dl (0.6-1.3)
[2018-03-30] MEDS ORDERED: PHENELZINE SULFATE PO SCH (10:00)
[2018-03-30] MEDS ORDERED: lamoTRIgine 25 MG TABLET PO SCH (10:00)
[2018-03-30] MEDS ORDERED: amLODIPine BESYLATE 2.5 MG TABLET (FP) PO SCH (10:00)
[2018-03-30] MEDS ORDERED: CYANOCOBALAMIN 1,000 MCG TABLET (FP) PO SCH (10:00)
--- NOTE | 2018-03-30 11:00 | EKG ---
Test Reason : Blood Pressure : / mmHG Vent. Rate : 062 BPM Atrial Rate : 062 BPM P-R Int : 156 ms QRS Dur : 098 ms QT Int : 416 ms P-R-T Axes : 062 -20 073 degrees QTc Int : 422 ms NORMAL SINUS RHYTHM POSSIBLE LEFT ATRIAL ENLARGEMENT ANTERIOR INFARCT (CITED ON OR BEFORE 30-NOV-2016) ABNORMAL ECG WHEN COMPARED WITH ECG OF 30-NOV-2016 18:12, PREMATURE SUPRAVENTRICULAR COMPLEXES ARE NO LONGER PRESENT Confirmed by RJ JOE, GABY ([id number]) on 03/30/2018 11:00:44 AM Referred By: DR BLUNT Confirmed By:GABY DE LA ROSA MD
--- NOTE | 2018-03-30 11:13 | PN ---
Progress Note, Physician History of Present Illness: 82-year-old female from [facility] brought in by ambulance status post fall with head injury. Pt has been in [facility], has no recollection of the fall. States she recalls standing at her bathroom sink, and next thing she knew she was in the bathtub. Pt hit her lifealert and EMS arrived. Now complaining of isolated scalp pain to where she hit her head, no headache/vision change/ speech change/neck pain/focal weakness/n/v. denies any cp/sob/palp/diaphoresis. denies any recent infectious complaints. no h/o syncope - Current Medication List Current Medications: Active Medications Amlodipine Besylate (Norvasc -) 2.5 mg PO DAILY [facility] Last Admin: 03/30/18 09:24 Dose: 2.5 mg Clonazepam (Klonopin -) 0.25 mg PO BID [facility] Last Admin: 03/30/18 09:24 Dose: 0.25 mg Cyanocobalamin (Vitamin B12 -) 1,000 mcg PO DAILY [facility] Last Admin: 03/30/18 09:24 Dose: 1,000 mcg Docusate Sodium (Colace -) 100 mg PO TID [facility] Last Admin: 03/30/18 06:46 Dose: 100 mg Lamotrigine (Lamictal -) 25 mg PO BID [facility] Last Admin: 03/30/18 09:25 Dose: 25 mg Latanoprost (Xalatan 0.005% Eye Drops -) 1 drop OU HS [facility] Levothyroxine Sodium (Synthroid -) 112 mcg PO 0700 [facility] Last Admin: 03/30/18 06:48 Dose: 112 mcg Non-Formulary Medication (Phenelzine Sulfate [Nardil]) 30 mg PO BID [facility] Tramadol HCl (Ultram -) 50 mg PO Q6H PRN PRN Reason: PAIN LEVEL 1-5 Trazodone HCl (Desyrel -) 50 mg PO HS [facility] Last Admin: 03/30/18 00:15 Dose: 50 mg - Objective Vital Signs: Vital Signs Temperature 97.6 F 03/30/18 06:00 Pulse Rate 74 03/30/18 06:00 Respiratory Rate 16 03/30/18 08:27 Blood Pressure 112/62 03/30/18 06:00 O2 Sat by Pulse Oximetry (%) 99 03/30/18 08:27 Eyes: Yes: WNL, Conjunctiva Clear, EOM Intact HENT: Yes: WNL, Atraumatic, Normocephalic Neck: Yes: WNL, Supple, Trachea Midline Cardiovascular: Yes: WNL, Regular Rate and Rhythm Respiratory: Yes: WNL, Regular, CTA Bilaterally Gastrointestinal: Yes: WNL, Normal Bowel Sounds Genitourinary: Yes: WNL Musculoskeletal: Yes: WNL Extremities: Yes: WNL Edema: No Integumentary: Yes: WNL Neurological: Yes: WNL, Alert, Oriented ...Motor Strength: WNL Psychiatric: Yes: WNL Labs: CBC, BMP 03/30/18 07:52 03/30/18 07:52 Problem List - Problems (1) Fall from standing Code(s): W19.XXXA - UNSPECIFIED FALL, INITIAL ENCOUNTER Qualifiers: Encounter type: initial encounter Qualified Code(s): W19.XXXA - Unspecified fall, initial encounter (2) Syncope Code(s): R55 - SYNCOPE AND COLLAPSE Qualifiers: Syncope type: unspecified Qualified Code(s): R55 - Syncope and collapse (3) Contusion of face Code(s): S00.83XA - CONTUSION OF OTHER PART OF HEAD, INITIAL ENCOUNTER Qualifiers: Encounter type: initial encounter Qualified Code(s): S00.83XA - Contusion of other part of head, initial encounter (4) Fall Code(s): W19.XXXA - UNSPECIFIED FALL, INITIAL ENCOUNTER (5) Neck pain Code(s): M54.2 - CERVICALGIA Assessment/Plan syncope hypothyroidism cad ? old anteroseptal CA on EKG Plan d/c norvasc due to hypotension r/o mi echo c. duplex neuro eval/consultation
[2018-03-30] MEDS ORDERED: LEVOTHYROXINE NA 125 MCG TABLET (FP) PO SCH (12:30)
--- NOTE | 2018-03-30 12:43 | ECHO ---
Name: GIANNA SORENSEN Exam:Adult Echocardiogram Study Date: 03/30/2018 09:55 AM Age: 82 yrs Reason For Study: SYNCOPE Height: 60 in Weight: 104 lb BSA: 1.4 m2 MMode/2D Measurements & Calculations IVSd: 0.86 cm EDV(Teich): 94.9 ml LVIDd: 4.6 cm ESV(Teich): 30.5 ml LVIDs: 2.8 cm LVPWd: 0.80 cm Doppler Measurements & Calculations MV E max sheryl: 64.8 cm/sec MV A max sheryl: 85.8 cm/sec MV dec slope: 385.5 cm/sec2 MV E/A: 0.76 Ao V2 max: 147.2 cm/sec LV V1 max P.5 mmHg Ao max P.7 mmHg LV V1 max: 61.3 cm/sec MR max sheryl: 371.9 cm/sec TR max sheryl: 190.3 cm/sec MR max P.3 mmHg TR max P.6 mmHg Procedure A two-dimensional transthoracic echocardiogram with color flow and Doppler was performed. Left Ventricle The left ventricular size, thickness and function are normal. The left ventricular ejection fraction is normal. E/A reversal consistent with but not diagnostic of poor LV compliance. The left ventricular w all motion is normal. Right Ventricle The right ventricle is normal in size and function. There is a pacemaker lead in the right ventricle. Atria The left atrium is mildly dilated. The right atrium is mildly dilated. Mitral Valve There is mild mitral valve thickening. There is no mitral valve stenosis. There is mild mitral regurg itation. Tricuspid Valve There is mild tricuspid valve thickening. There is no tricuspid stenosis. There is moderate to severe tricuspid regurgitation. Right ventricular systolic pressure is normal. Aortic Valve The aortic valve is not well visualized. No hemodynamically significant valvular aortic stenosis. Mod erate aortic regurgitation. Pulmonic Valve The pulmonic valve is not well visualized. Great Vessels The aortic root is not well visualized. Pericardium/Pleura There is no pericardial effusion. Interpretation Summary The left ventricular size, thickness and function are normal The left ventricular ejection fraction is normal. Moderate aortic regurgitation. Right ventricular systolic pressure is normal. There is moderate to severe tricuspid regurgitation. There is a pacemaker lead in the right ventricle. The left atrium is mildly dilated. The right atrium is mildly dilated. E/A reversal consistent with but not diagnostic of poor LV compliance The left ventricular wall motion is normal. There is mild mitral regurgitation. MD Israel Swan 03/30/2018 12:42 PM
[2018-03-30 13:55] VITALS: BP 106/58; PULSE 85; TEMP 98.5
--- NOTE | 2018-03-30 14:21 | PN ---
Physical Exam: SUBJECTIVE: Patient seen and examined OBJECTIVE: Vital Signs Period Temp Pulse Resp BP Sys/Hagen Pulse Ox Last 24 Hr 97.6 F-98.5 F 68-85 14-18 87-158/55-90 94-100 GENERAL: The patient is awake, alert, and fully oriented, in no acute distress. HEAD: Normal with no signs of trauma. EYES: PERRL, extraocular movements intact, sclera anicteric, conjunctiva clear. No ptosis. ENT: Ears normal, nares patent, oropharynx clear without exudates, moist mucous membranes. NECK: Trachea midline, full range of motion, supple. LUNGS: Breath sounds equal, clear to auscultation bilaterally, no wheezes, no crackles, no accessory muscle use. HEART: Regular rate and rhythm, S1, S2 without murmur, rub or gallop. ABDOMEN: Soft, nontender, nondistended, normoactive bowel sounds, no guarding, no rebound, no hepatosplenomegaly, no masses. EXTREMITIES: 2+ pulses, warm, well-perfused, no edema. NEUROLOGICAL: Cranial nerves II through XII grossly intact. Normal speech, gait not observed. PSYCH: Normal mood, normal affect. SKIN: Warm, dry, normal turgor, no rashes or lesions noted Laboratory Results - last 24 hr 03/29/18 03/29/18 03/29/18 18:50 19:17 19:17 WBC 7.9 RBC 4.50 Hgb 12.7 Hct 37.6 MCV 83.6 MCH 28.3 MCHC 33.9 RDW 14.9 Plt Count 291 MPV 8.2 Absolute Neuts (auto) Neutrophils % Lymphocytes % Monocytes % Eosinophils % Basophils % Sodium Cancelled Potassium Cancelled Chloride Cancelled Carbon Dioxide Cancelled Anion Gap Cancelled BUN Cancelled Creatinine Cancelled Creat Clearance w eGFR Cancelled Random Glucose Cancelled Calcium Cancelled Total Bilirubin Cancelled AST Cancelled ALT Cancelled Alkaline Phosphatase Cancelled Creatine Kinase Cancelled Troponin I Cancelled Total Protein Cancelled Albumin Cancelled TSH Urine Color Yellow Urine Appearance Clear Urine pH 6.0 Ur Specific [place] 1.025 Urine Protein 1+ H Urine Glucose (UA) Negative Urine Ketones Negative Urine Blood 1+ H Urine Nitrite Negative Urine Bilirubin Negative Urine Urobilinogen 0.2 Ur Leukocyte Esterase Negative Urine RBC 5-10 Urine WBC 0-2 Ur Epithelial Cells 1+ Urine Bacteria 1+ 03/29/18 03/29/18 03/29/18 19:17 19:17 20:00 WBC RBC Hgb Hct MCV MCH MCHC RDW Plt Count MPV Absolute Neuts (auto) Neutrophils % Lymphocytes % Monocytes % Eosinophils % Basophils % Sodium 140 Potassium 4.2 Chloride 105 Carbon Dioxide 28 Anion Gap 7 L BUN 26 H Creatinine < 0.6 L Creat Clearance w eGFR > 60 Random Glucose 96 Calcium 9.0 Total Bilirubin 0.4 AST 12 D ALT 10 Alkaline Phosphatase 82 Creatine Kinase 89 Troponin I < 0.03 Total Protein 6.5 Albumin 3.7 TSH Urine Color Urine Appearance Urine pH Ur Specific [place] Urine Protein Urine Glucose (UA) Urine Ketones Urine Blood Urine Nitrite Urine Bilirubin Urine Urobilinogen Ur Leukocyte Esterase Urine RBC Urine WBC Ur Epithelial Cells Urine Bacteria 03/30/18 03/30/18 03/30/18 07:52 07:52 07:52 WBC 7.4 RBC 4.23 Hgb 11.9 Hct 35.9 MCV 85.1 MCH 28.2 MCHC 33.1 RDW 14.7 Plt Count 284 MPV 7.9 Absolute Neuts (auto) 4.8 Neutrophils % 65.3 Lymphocytes % 26.6 Monocytes % 7.8 Eosinophils % 0.1 Basophils % 0.2 Sodium 142 Potassium 4.4 Chloride 107 Carbon Dioxide 31 H Anion Gap 4 L BUN 25 H Creatinine < 0.6 L Creat Clearance w eGFR > 60 Random Glucose 93 Calcium 9.3 Total Bilirubin AST ALT Alkaline Phosphatase Creatine Kinase 57 Troponin I Total Protein Albumin TSH 12.00 H Urine Color Urine Appearance Urine pH Ur Specific [place] Urine Protein Urine Glucose (UA) Urine Ketones Urine Blood Urine Nitrite Urine Bilirubin Urine Urobilinogen Ur Leukocyte Esterase Urine RBC Urine WBC Ur Epithelial Cells Urine Bacteria 03/30/18 07:52 WBC RBC Hgb Hct MCV MCH MCHC RDW Plt Count MPV Absolute Neuts (auto) Neutrophils % Lymphocytes % Monocytes % Eosinophils % Basophils % Sodium Potassium Chloride Carbon Dioxide Anion Gap BUN Creatinine Creat Clearance w eGFR Random Glucose Calcium Total Bilirubin AST ALT Alkaline Phosphatase Creatine Kinase Troponin I < 0.03 Total Protein Albumin TSH Urine Color Urine Appearance Urine pH Ur Specific [place] Urine Protein Urine Glucose (UA) Urine Ketones Urine Blood Urine Nitrite Urine Bilirubin Urine Urobilinogen Ur Leukocyte Esterase Urine RBC Urine WBC Ur Epithelial Cells Urine Bacteria Active Medications Generic Name Dose Route Start Last Admin Trade Name Freq PRN Reason Stop Dose Admin Clonazepam 0.25 mg 03/30/18 00:15 03/30/18 09:24 Klonopin - PO 0.25 mg BID JENNIFER Administration Cyanocobalamin 1,000 mcg 03/30/18 10:00 03/30/18 09:24 Vitamin B12 - PO 1,000 mcg DAILY JENNIFER Administration Docusate Sodium 100 mg 03/30/18 06:00 03/30/18 13:52 Colace - PO 100 mg TID JENNIFER Administration Lamotrigine 25 mg 03/30/18 10:00 03/30/18 09:25 Lamictal - PO 25 mg BID JENNIFER Administration Latanoprost 1 drop 03/30/18 22:00 Xalatan 0.005% Eye Drops - OU HS JENNIFER Levothyroxine Sodium 125 mcg 03/30/18 12:30 Synthroid - PO 0700 JENNIFER Non-Formulary Medication 30 mg 03/30/18 10:00 Phenelzine Sulfate [Nardil] PO BID JENNIFER Tramadol HCl 50 mg 03/30/18 00:08 Ultram - PO Q6H PRN PAIN LEVEL 1-5 Trazodone HCl 50 mg 03/30/18 00:15 03/30/18 00:15 Desyrel - PO 50 mg HS JENNIFER Administration ASSESSMENT/PLAN: 82 year-old female with a PMH significant for HTN, hypothyroidism s/p thyroidectomy Patient lives at independent living ([facility]) PCP: Dr. Aldo Garcia ([facility])
--- NOTE | 2018-03-30 14:26 | DS ---
Physical Exam: SUBJECTIVE: Patient seen and examined OBJECTIVE: Vital Signs Period Temp Pulse Resp BP Sys/Hagen Pulse Ox Last 24 Hr 97.6 F-98.5 F 68-85 14-18 87-158/55-90 94-100 PHYSICAL EXAM GENERAL: The patient is awake, alert, and fully oriented, in no acute distress. HEAD: Normal with no signs of trauma. EYES: PERRL, extraocular movements intact, sclera anicteric, conjunctiva clear. ENT: Ears normal, nares patent, oropharynx clear without exudates, moist mucous membranes. NECK: Trachea midline, full range of motion, supple. LUNGS: Breath sounds equal, clear to auscultation bilaterally, no wheezes, no crackles, no accessory muscle use. HEART: Regular rate and rhythm, S1, S2 without murmur, rub or gallop. ABDOMEN: Soft, nontender, nondistended, normoactive bowel sounds, no guarding, no rebound, no hepatosplenomegaly, no masses. EXTREMITIES: 2+ pulses, warm, well-perfused, no edema. NEUROLOGICAL: Cranial nerves II through XII grossly intact. Normal speech, gait not observed. PSYCH: Normal mood, normal affect. SKIN: Warm, dry, normal turgor, no rashes or lesions noted. LABS Laboratory Results - last 24 hr 03/29/18 03/29/18 03/29/18 18:50 19:17 19:17 WBC 7.9 RBC 4.50 Hgb 12.7 Hct 37.6 MCV 83.6 MCH 28.3 MCHC 33.9 RDW 14.9 Plt Count 291 MPV 8.2 Absolute Neuts (auto) Neutrophils % Lymphocytes % Monocytes % Eosinophils % Basophils % Sodium Cancelled Potassium Cancelled Chloride Cancelled Carbon Dioxide Cancelled Anion Gap Cancelled BUN Cancelled Creatinine Cancelled Creat Clearance w eGFR Cancelled Random Glucose Cancelled Calcium Cancelled Total Bilirubin Cancelled AST Cancelled ALT Cancelled Alkaline Phosphatase Cancelled Creatine Kinase Cancelled Troponin I Cancelled Total Protein Cancelled Albumin Cancelled TSH Urine Color Yellow Urine Appearance Clear Urine pH 6.0 Ur Specific [place] 1.025 Urine Protein 1+ H Urine Glucose (UA) Negative Urine Ketones Negative Urine Blood 1+ H Urine Nitrite Negative Urine Bilirubin Negative Urine Urobilinogen 0.2 Ur Leukocyte Esterase Negative Urine RBC 5-10 Urine WBC 0-2 Ur Epithelial Cells 1+ Urine Bacteria 1+ 03/29/18 03/29/18 03/29/18 19:17 19:17 20:00 WBC RBC Hgb Hct MCV MCH MCHC RDW Plt Count MPV Absolute Neuts (auto) Neutrophils % Lymphocytes % Monocytes % Eosinophils % Basophils % Sodium 140 Potassium 4.2 Chloride 105 Carbon Dioxide 28 Anion Gap 7 L BUN 26 H Creatinine < 0.6 L Creat Clearance w eGFR > 60 Random Glucose 96 Calcium 9.0 Total Bilirubin 0.4 AST 12 D ALT 10 Alkaline Phosphatase 82 Creatine Kinase 89 Troponin I < 0.03 Total Protein 6.5 Albumin 3.7 TSH Urine Color Urine Appearance Urine pH Ur Specific [place] Urine Protein Urine Glucose (UA) Urine Ketones Urine Blood Urine Nitrite Urine Bilirubin Urine Urobilinogen Ur Leukocyte Esterase Urine RBC Urine WBC Ur Epithelial Cells Urine Bacteria 03/30/18 03/30/18 03/30/18 07:52 07:52 07:52 WBC 7.4 RBC 4.23 Hgb 11.9 Hct 35.9 MCV 85.1 MCH 28.2 MCHC 33.1 RDW 14.7 Plt Count 284 MPV 7.9 Absolute Neuts (auto) 4.8 Neutrophils % 65.3 Lymphocytes % 26.6 Monocytes % 7.8 Eosinophils % 0.1 Basophils % 0.2 Sodium 142 Potassium 4.4 Chloride 107 Carbon Dioxide 31 H Anion Gap 4 L BUN 25 H Creatinine < 0.6 L Creat Clearance w eGFR > 60 Random Glucose 93 Calcium 9.3 Total Bilirubin AST ALT Alkaline Phosphatase Creatine Kinase 57 Troponin I Total Protein Albumin TSH 12.00 H Urine Color Urine Appearance Urine pH Ur Specific [place] Urine Protein Urine Glucose (UA) Urine Ketones Urine Blood Urine Nitrite Urine Bilirubin Urine Urobilinogen Ur Leukocyte Esterase Urine RBC Urine WBC Ur Epithelial Cells Urine Bacteria 03/30/18 07:52 WBC RBC Hgb Hct MCV MCH MCHC RDW Plt Count MPV Absolute Neuts (auto) Neutrophils % Lymphocytes % Monocytes % Eosinophils % Basophils % Sodium Potassium Chloride Carbon Dioxide Anion Gap BUN Creatinine Creat Clearance w eGFR Random Glucose Calcium Total Bilirubin AST ALT Alkaline Phosphatase Creatine Kinase Troponin I < 0.03 Total Protein Albumin TSH Urine Color Urine Appearance Urine pH Ur Specific [place] Urine Protein Urine Glucose (UA) Urine Ketones Urine Blood Urine Nitrite Urine Bilirubin Urine Urobilinogen Ur Leukocyte Esterase Urine RBC Urine WBC Ur Epithelial Cells Urine Bacteria HOSPITAL COURSE: Date of Admission:03/29/18 Date of Discharge: 03/30/18 82 year-old female with a PMH significant for HTN, hypothyroidism s/p thyroidectomy Patient lives at independent living ([facility]) PCP: Dr. Aldo Garcia ([facility]) Minutes to complete discharge: 35 Discharge Summary Reason For Visit: FALL,HEMATOMA TO HEAD Current Active Problems Fall from standing (Acute) Syncope (Acute) Condition: Improved - Instructions Diet, Activity, Other Instructions: Please return to the emergency department for any new or worsening symptoms. Referrals: Aldo Garcia [Primary Care Provider] - 1 Week Disposition: HOME - Home Medications Comprehensive Discharge Medication List: Ambulatory Orders Bimatoprost [Lumigan] 1 drop OP DAILY 11/30/16 Clonazepam [Klonopin] 0.25 mg PO BID 11/30/16 Levothyroxine [Synthroid -] 112 mcg PO DAILY 11/30/16 Phenelzine Sulfate [Nardil] 30 mg PO BID 11/30/16 traZODone HCL [Desyrel -] 50 mg PO HS 11/30/16 Cyanocobalamin [Vitamin B12 -] 1,000 mcg PO DAILY 03/29/18 Docusate Sodium [Colace] 100 mg PO TID 03/29/18 Lamotrigine [Lamictal] 2 tab PO BID 03/29/18 This patient is new to me today: Yes Date on this admission: 03/31/18 Emergency Visit: Yes ED Registration Date: 03/29/18 Care time: The patient presented to the Emergency Department on the above date and was hospitalized for further evaluation of their emergent condition. Critical Care patient: No - Discharge Referral Referred to [facility] Med P.C.: No
[2018-03-30] MEDS ORDERED: LATANOPROST 0.005% OPHTH SOLN 2.5ML BOTTLE OU SCH (22:00)
[2018-03-30] MEDS ORDERED: traZODone HCL 100 MG TABLET (FP) PO SCH (22:00)
== END 2018-03-30 15:14 | disposition home or self-care (01) ==
LOC: SUPCPDRO 18:19 → FER 18:19 → FM/S 20:58 → UNDOADMOB 23:38
PROVIDERS: ADMIT Internal Medicine; ATTEND Nurse Practitioner Acute Care
DX: R55 Syncope and collapse (principal); I10 Essential (primary) hypertension; E03.9 Hypothyroidism, unspecified; S00.83XA Contusion of other part of head, initial encounter; M54.2 Cervicalgia; W18.39XA Other fall on same level, initial encounter; Z91.81 History of falling; Y93.89 Activity, other specified; Y92.090 Kitchen in other non-institutional residence as the place of occurrence of the external cause
CPT/HCPCS: 36415; 70450-TC; 71045-TC-FY; 80048; 80053; 81003; 81015; 82550; 84443; 84484; 85025; 85027; 87086; 93005; 93306-TC; 93880-TC; 97116-GP; 97161-GP; 99285-25; G0378

== ENCOUNTER 2018-04-03 22:27 | Emergency (ER) | payer OTHER ==
--- NOTE | 2018-04-03 22:31 | PDOC ---
History of Present Illness - General History Source: Patient Exam Limitations: No Limitations - History of Present Illness Initial Comments: 04/03/18 23:00 The patient is a 82 year old female, resident [facility] the [facility] with a significant PMH of hypothyroidism who presents to the emergency department s/ p fall at 5PM today. Patient states she was putting on her shoe when she began experiencing pain to the left leg and fell forward from a standing position. Patient is now complaining of severe pain to the left leg. Patient denies any head trauma or LOC. Patient has otherwise been in her usual state of health. Patient had a recent admission for a fall one week ago and was recently discharged to her nursing facility. The patient denies headache, vision changes, focal weakness, nausea, vomit, neck pain, chest pain, shortness of breath, palpitations or diaphoresis. Patient denies any recent illnesses. Allergies: NKA Past surgical history: None reported. Social history: No reported alcohol, drug or cigarette use. <Cecille Biswas - Last Filed: 04/03/18 23:20> <Briseida Retana - Last Filed: 04/04/18 06:26> - General Chief Complaint: Injury Stated Complaint: FALL WITH LEG PAIN Time Seen by Provider: 04/03/18 22:30 Past History <Cecille Biswas - Last Filed: 04/03/18 23:20> - Past Medical History COPD: No Psychiatric Problems: Yes Thyroid Disease: Yes - Suicide/Smoking/Psychosocial Hx Smoking History: Unknown if ever smoked Have you smoked in the past 12 months: No Hx Alcohol Use: No Drug/Substance Use Hx: No Substance Use Type: None Hx Substance Use Treatment: No <Briseida Retana - Last Filed: 04/04/18 06:26> - Past Medical History Allergies/Adverse Reactions: Allergies Allergy/AdvReac Type Severity Reaction Status Date / Time cheese Allergy Verified 03/29/18 18:20 Home Medications: Ambulatory Orders Bimatoprost [Lumigan] 1 drop OP DAILY 11/30/16 Clonazepam [Klonopin] 0.25 mg PO BID 11/30/16 Levothyroxine [Synthroid -] 112 mcg PO DAILY 11/30/16 Phenelzine Sulfate [Nardil] 30 mg PO BID 11/30/16 traZODone HCL [Desyrel -] 50 mg PO HS 07/24/17 Cyanocobalamin [Vitamin B12 -] 1,000 mcg PO DAILY 03/29/18 Docusate Sodium [Colace] 100 mg PO TID 03/29/18 Lamotrigine [Lamictal] 2 tab PO BID 03/29/18 Review of Systems - Review of Systems Able to Perform ROS?: Yes Comments:: 04/03/18 23:00 ADULT ROS GENERAL/CONSTITUTIONAL: No fever or chills. No weakness. HEAD, EYES, EARS, NOSE AND THROAT: No change in vision. No ear pain or discharge. No sore throat. CARDIOVASCULAR: No chest pain or shortness of breath. RESPIRATORY: No cough, wheezing, or hemoptysis. GASTROINTESTINAL: No nausea, vomiting, diarrhea or constipation. GENITOURINARY: No dysuria, frequency, or change in urination. MUSCULOSKELETAL: (+) Left lower extremity pain. No neck or back pain. SKIN: No rash NEUROLOGIC: No headache, vertigo, loss of consciousness, or change in strength/ sensation. ENDOCRINE: No increased thirst. No abnormal weight change. HEMATOLOGIC/LYMPHATIC: No anemia, easy bleeding, or history of blood clots. ALLERGIC/IMMUNOLOGIC: No hives or skin allergy. <Cecille Biswas - Last Filed: 04/03/18 23:20> *Physical Exam - Vital Signs Last Vital Signs Temp Pulse Resp BP Pulse Ox 97.6 F 80 18 129/80 97 04/03/18 22:38 04/03/18 22:38 04/03/18 22:38 04/03/18 22:38 04/03/18 22:38 - Physical Exam Comments: 04/03/18 23:00 ADULT EXAM GENERAL: Awake, alert, and fully oriented, in no acute distress HEAD: No signs of trauma EYES: PERRLA, EOMI, sclera anicteric, conjunctiva clear ENT: Auricles normal inspection, hearing grossly normal, nares patent, oropharynx clear without exudates. Moist mucosa NECK: Normal ROM, supple, no lymphadenopathy, JVD, or masses LUNGS: Breath sounds equal, clear to auscultation bilaterally. No wheezes, and no crackles HEART: Regular rate and rhythm, normal S1 and S2, no murmurs, rubs or gallops ABDOMEN: Soft, nontender, normoactive bowel sounds. No guarding, no rebound. No masses EXTREMITIES: (+) Mild tenderness to palpation of the proximal left lower extremity. No significant tenderness to palpation of the anterior left hip, but pain with elevation of at the anterior hip area with elevation of the left leg. (+) Left lower extremity is externally rotated and shortened. Remainder of the exam is normal. NEUROLOGICAL: Cranial nerves II through XII grossly intact. Normal speech, normal gait SKIN: Warm, Dry, normal turgor, no rashes or lesions noted. <Cecille Biswas - Last Filed: 04/03/18 23:20> Progress Note - Progress Note Progress Note: Documentation has been prepared under my direction and personally reviewed by me in its entirety. I attest that this documented accurately reflects all work, treatment, procedures and medical decision making performed by me. <Briseida Retana - Last Filed: 04/04/18 06:26> Medical Decision Making - Medical Decision Making As noted above, this 82-year-old woman presents with history of falling earlier today on the left hip/pelvis area. The patient states that she has been walking without significant problems since the injury but presents now because of pain in the area. Exam as noted. Left hip/pelvis x-ray performed: Preliminary interpretation by Imaging physical education teacher- no evidence of acute fracture/dislocation and hardware present in the left hip is intact with no evidence of loosening. Reexamination after x-ray reveals no significant pain on full movement of the left hip. No significant tenderness noted. Clinical presentation most consistent with left hip contusion. This patient should continue Tylenol as needed for pain. If she has persistent pain in the area, she should follow-up with orthopedic group: Referral information for given to her. If pain is so severe that she cannot weight bear, she should return to the ER <Briseida Retana - Last Filed: 04/04/18 06:26> *DC/Admit/Observation/Transfer - Attestations Scribe Attestion: 04/03/18 23:00 Documentation prepared by Cecille Biswas, acting as medical microbiologist for Briseida Retana MD. <Cecille Biswas - Last Filed: 04/03/18 23:20> <Briseida Retana - Last Filed: 04/04/18 06:26> Diagnosis at time of Disposition: Contusion of left hip Qualifiers: Encounter type: initial encounter Qualified Code(s): S70.02XA - Contusion of left hip, initial encounter - Discharge Dispostion Disposition: HOME Condition at time of disposition: Stable - Referrals Referrals: Sin Dowd MD [Staff Physician] - 1 week - Patient Instructions Printed Discharge Instructions: DI for Contusion Additional Instructions: Tylenol as needed for pain followup with Dr Dowd orthopedic group if pain persists for more than [address] Garcia within 10 days
[2018-04-03 22:43] VITALS: BP 129/80; PULSE 80; TEMP 97.6; BMI 20.1
[2018-04-04] MEDS ORDERED: ACETAMINOPHEN 325 MG TABLET (FP) PO ONE (00:44)
[2018-04-04] MEDS ORDERED: ACETAMINOPHEN 325 MG TABLET (FP) ONE (00:45)
== END 2018-04-04 00:46 | disposition home or self-care (01) ==
LOC: FER 22:27
DX: S70.02XA Contusion of left hip, initial encounter (principal); W18.39XA Other fall on same level, initial encounter; Y93.89 Activity, other specified; Y92.89 Other specified places as the place of occurrence of the external cause
CPT/HCPCS: 73523-TC-FY; 99281-25

== ENCOUNTER 2018-04-05 09:40 | Emergency (ER) | payer OTHER ==
[2018-04-05 09:48] VITALS: BMI 19.9
--- NOTE | 2018-04-05 09:52 | PDOC ---
Attending Attestation - Resident Resident Name: Joselito Fisher - ED Attending Attestation I have performed the following: I have examined & evaluated the patient, The case was reviewed & discussed with the resident, I agree w/resident's findings & plan, Exceptions are as noted - HPI HPI: 04/05/18 10:01 82y F hx of HTN, hypothyroidism, anxiety, CAD sp PM, presents with palptaitions starting around 4am this morning. The patient denies any other complaints complaints including fever, chills, cough, shortness of breath, chest pain, abdominal pain, headache, dizziness, nausea, vomiting. She does seem to be very concerned that her memory is not what it used to be and she seems frustrated when she can't remember details from the last couple of days or weeks. She states she does not have a diagnosis of dementia. Her memory has been worsening over the past several months. Patient states that she was having similar frustrations earlier today when her palpitations started. The patient denies any palpitations currently. GENERAL: The patient is awake, alert, and fully oriented, Nontoxic - in no acute distress. HEAD: Normocephalic, atraumatic. EYES: extraocular movements intact, sclera anicteric, conjunctiva clear. ENT: Normal voice, Moist mucous membranes. NECK: Normal range of motion, supple LUNGS: Breath sounds equal, clear to auscultation bilaterally. No wheezes, no rhonchi, no rales. HEART: Regular rate and rhythm, normal S1 and S2 without murmur, rub or gallop. ABDOMEN: Soft, nontender, normoactive bowel sounds. No guarding, no rebound. . No CVA tenderness EXTREMITIES: Normal range of motion, no edema. No clubbing or cyanosis. No cords, erythema, or tenderness. NEUROLOGICAL: No facial assymetry, Normal speech, PSYCH: Normal mood, anxious affect. SKIN: Warm, Dry, normal turgor, - Physicial Exam PE: 04/05/18 11:13 seee above - Medical Decision Making 04/05/18 11:13 will ck labs, repeat CT (has one from prior fall that was negative, but will repeat to r/o SDH as cause of her memory deficits) will ck UA to r/o UTI will attempt to raech out to her PMD to see if her memory probably is acute vs chronic will reassess 04/05/18 13:34 pt lab work reviewed pt feeilng better - Dr. Fisher had dsicussed with pts PMD - states pt is always concerned of something being wrong and is frquently in touch with the patient. TSH elevated - PMD ntose pt does not take her medications reliably - requests we have her remember to take her meds, and he will fu with her as an outpatient. will dc with pmd fu 04/05/18 14:27 case giovana jean baptiste (son - who is a psychaitirst) - notes the pt has a hx of deperssiona/nxiety and has had inpatient admission for this in the past - her doctor is Dr. Mary Greenwood - work [phone] (Psych) cell - [phone] - he will try to reach out to her to see if he can get her transferred to an inpatient facility for further workup as the pt is refusing to leave - stating she is worried she will be all alone. 04/05/18 17:19 when we were getting ready to discharge the pt, the charge nurse thought she heard that she was going to harm herself - she was placed on one to one briefly - When i went back to the patient she states is very frustrated at the independant living facility stating it is very lonely there. states she did not have any thoughts or plans of harming herself and that she does NOT want to . She tates she did haev a history of harming herself in the past, but nothing like that currently. the pts arrived - states he will take her home and will keep an eye on her. i do not feel the pt is suicidal, but do sense she is frustrated and unhappy at the assisted living. i do feel the pt needs to be upgraded from inde[facility]ant living to assisted living. this was discussed wth the pts son and and they agree that she needs to be more cosnsitently taking her medications. they ahve a plan for a pill dispenser and will consider upgrading her care at home tnoghe, rosendo e will be discharged into the care of her (a pychiatrist). will discuss with dr. Greenwood. 04/05/18 18:30 case giovana greenwood agrees that if pt is goign home with her , will be safe her next appt is 04/21 - but sates pt can call her for a fu appointment sooner if need be. agree discsused with pt and pt denie sany SI/HI and seems releived that she will be with her tonight. Heart Score/ECG Review - ECG Impressions Comment:: 04/05/18 11:19 Twelve-lead EKG was performed and reviewed by me. There is normal sinus rhythm with a normal rate. Rate of 77 Left axis deviation
--- NOTE | 2018-04-05 10:00 | PDOC ---
History of Present Illness <Amos Daigle - Last Filed: 04/05/18 18:33> - History of Present Illness Initial Comments: 04/05/18 09:55 82 yo F with h/o HTN, thyrpoid ca. s/p total thyroidectomy, hypothyroidism, anxiety, CAD, AR ,not on AC BIBA from [facility] ( [facility]) who p/w palpitations. Patient report acute onset of palpitations at 0400 AM this morning with no identifiable alleviators or triggers. Symptoms now resolved. Patient may have received home dose of Clonazpeam this morning for symptom control per patient and EMS. Patient experiences palpitations weekly. Denies other complaints. Patient last seen 03/29/18 syncopal event. Cardiac consultation revealed prior Anteroseptal AR on EKG, Echo revealed pacemaker in right ventricle and moderate AR. Normal EF. Cardiac pacemaker interrogation unremarkable. Patient denies N/V, nec kpain , jaw pain ,leg pain/swelling, cough, wheezing , PND , orthopnea, diaphoresis, F,C, CP, SOB, urinary complaints, abdominal pain, diarrhea, constipation, hematuria, BPR lightheadedness, LOC, weakness, sensory changes. PMHx: as noted above .Denies h/o stent placement, or CABG. Denies h/o PE/DVT. ROS: as noted SHx: tobacc ocessation x 8 years ago. Denies Etoh, IVDA Allergies: NKDA Cardiology :Dr. Swan <Joselito Fisher - Last Filed: 04/05/18 19:01> - General Chief Complaint: Weakness Stated Complaint: "I DONT FEEL WELL" Time Seen by Provider: 04/05/18 09:47 Past History <Amos Daigle - Last Filed: 04/05/18 18:33> - Past Medical History COPD: No Psychiatric Problems: Yes Thyroid Disease: Yes - Suicide/Smoking/Psychosocial Hx Smoking History: Never smoked Have you smoked in the past 12 months: No Information on smoking cessation initiated: No Hx Alcohol Use: No Drug/Substance Use Hx: No Substance Use Type: None Hx Substance Use Treatment: No <Joselito Fisher - Last Filed: 04/05/18 19:01> - Past Medical History Allergies/Adverse Reactions: Allergies Allergy/AdvReac Type Severity Reaction Status Date / Time cheese Allergy Verified 04/05/18 09:43 Home Medications: Ambulatory Orders Bimatoprost [Lumigan] 1 drop OP DAILY 11/30/16 Clonazepam [Klonopin] 0.25 mg PO BID 11/30/16 Levothyroxine [Synthroid -] 112 mcg PO DAILY 11/30/16 Phenelzine Sulfate [Nardil] 30 mg PO BID 11/30/16 traZODone HCL [Desyrel -] 50 mg PO HS 11/30/16 Cyanocobalamin [Vitamin B12 -] 1,000 mcg PO DAILY 03/29/18 Docusate Sodium [Colace] 100 mg PO TID 03/29/18 Lamotrigine [Lamictal] 2 tab PO BID 03/29/18 Review of Systems - Review of Systems Comments:: 04/05/18 10:28 GENERAL/CONSTITUTIONAL: No fever or chills. No weakness. HEAD, EYES, EARS, NOSE AND THROAT: No change in vision. No ear pain or discharge. No sore throat. CARDIOVASCULAR: +Palpitations. No chest pain or shortness of breath RESPIRATORY: No cough, wheezing, or hemoptysis. GASTROINTESTINAL: No nausea, vomiting, diarrhea or constipation. GENITOURINARY: No dysuria, frequency, or change in urination. MUSCULOSKELETAL: No joint or muscle swelling or pain. No neck or back pain. SKIN: No rash NEUROLOGIC: No headache, vertigo, loss of consciousness, or change in strength/ sensation. ENDOCRINE: No increased thirst. No abnormal weight change HEMATOLOGIC/LYMPHATIC: No anemia, easy bleeding, or history of blood clots. ALLERGIC/IMMUNOLOGIC: No hives or skin allergy. <Joselito Fisher - Last Filed: 04/05/18 19:01> *Physical Exam - Vital Signs Last Vital Signs Temp Pulse Resp BP Pulse Ox 98.4 F 74 18 158/90 96 04/05/18 09:40 04/05/18 09:40 04/05/18 09:40 04/05/18 09:40 04/05/18 09:40 <Amos Daigle - Last Filed: 04/05/18 18:33> - Vital Signs Last Vital Signs Temp Pulse Resp BP Pulse Ox 98.4 F 74 18 158/90 96 04/05/18 09:40 04/05/18 09:40 04/05/18 09:40 04/05/18 09:40 04/05/18 09:40 - Physical Exam Comments: 04/05/18 10:28 GENERAL: Awake, alert, and fully oriented, in no acute distress HEAD: No signs of trauma, normocephalic, atraumatic EYES: PERRLA, EOMI, sclera anicteric, conjunctiva clear ENT: Auricles normal inspection, hearing grossly normal, nares patent, oropharynx clear without exudates. Moist mucosa NECK: Normal ROM, supple, no lymphadenopathy, JVD, or masses LUNGS: No distress, speaks full sentences, clear to auscultation bilaterally HEART: Regular rate and rhythm, normal S1 and S2, no murmurs, rubs or gallops, peripheral pulses normal and equal bilaterally. ABDOMEN: Soft, nontender, normoactive bowel sounds. No guarding, no rebound. No masses EXTREMITIES : Normal inspection, Normal range of motion, no edema. No clubbing or cyanosis. NEUROLOGICAL: Cranial nerves II through XII grossly intact. Normal speech, normal gait, no focal sensorimotor deficits SKIN: Warm, Dry, normal turgor, no rashes or lesions noted <Joselito Fisher - Last Filed: 04/05/18 19:01> Moderate Sedation - Procedure Monitoring Vital Signs: Procedure Monitoring Vital Signs Temperature 98.4 F 04/05/18 09:40 Pulse Rate 74 04/05/18 09:40 Respiratory Rate 18 04/05/18 09:40 Blood Pressure 158/90 04/05/18 09:40 O2 Sat by Pulse Oximetry (%) 96 04/05/18 09:40 <Amos Daigle - Last Filed: 04/05/18 18:33> - Procedure Monitoring Vital Signs: Procedure Monitoring Vital Signs Temperature 98.4 F 04/05/18 09:40 Pulse Rate 74 04/05/18 09:40 Respiratory Rate 18 04/05/18 09:40 Blood Pressure 158/90 04/05/18 09:40 O2 Sat by Pulse Oximetry (%) 96 04/05/18 09:40 <Joselito Fisher - Last Filed: 04/05/18 19:01> ED Treatment Course - LABORATORY CBC & Chemistry Diagram: 04/05/18 10:26 04/05/18 10:26 - ADDITIONAL ORDERS Additional order review: Laboratory Results 04/05/18 04/05/1818 10:54 10:26 10:26 PT with INR INR Sodium 139 Potassium 3.5 D Chloride 105 Carbon Dioxide 26 Anion Gap 8 BUN 19 H Creatinine 0.6 Creat Clearance w eGFR > 60 Random Glucose 105 Calcium 9.3 Total Bilirubin 0.8 AST 17 D ALT 10 Alkaline Phosphatase 90 Creatine Kinase 162 Creatine Kinase Index 0.9 CK-MB (CK-2) 1.6 Troponin I < 0.02 B-Natriuretic Peptide 246.9 Total Protein 7.1 Albumin 4.2 TSH 22.60 H Urine Color Kelly Urine Appearance Clear Urine pH 6.5 Ur Specific [place] >= 1.030 Urine Protein 2+ H Urine Glucose (UA) Negative Urine Ketones 1+ H Urine Blood Trace-intact H Urine Nitrite Negative Urine Bilirubin Negative Urine Urobilinogen 0.2 Ur Leukocyte Esterase Negative Urine RBC 5-10 Urine WBC 2-5 Ur Epithelial Cells Few 04/05/18 10:26 PT with INR 11.5 INR 1.03 Sodium Potassium Chloride Carbon Dioxide Anion Gap BUN Creatinine Creat Clearance w eGFR Random Glucose Calcium Total Bilirubin AST ALT Alkaline Phosphatase Creatine Kinase Creatine Kinase Index CK-MB (CK-2) Troponin I B-Natriuretic Peptide Total Protein Albumin TSH Urine Color Urine Appearance Urine pH Ur Specific [place] Urine Protein Urine Glucose (UA) Urine Ketones Urine Blood Urine Nitrite Urine Bilirubin Urine Urobilinogen Ur Leukocyte Esterase Urine RBC Urine WBC Ur Epithelial Cells 04/05/18 10:26 RBC 4.66 MCV 84.2 MCHC 32.7 RDW 15.6 MPV 8.0 Neutrophils % 77.1 Lymphocytes % 15.3 Monocytes % 6.9 Eosinophils % 0.0 Basophils % 0.7 <Amos Daigle - Last Filed: 04/05/18 18:33> - LABORATORY CBC & Chemistry Diagram: 04/05/18 10:26 04/05/18 10:26 <Joselito Fisher - Last Filed: 04/05/18 19:01> Medical Decision Making - Medical Decision Making 04/05/18 10:13 82 yo F with h/o HTN, thyrpoid ca. s/p total thyroidectomy, hypothyroidism, anxiety, CAD, AR ,not on AC BIBA from [facility] ( [facility]) who p/w palpitations. VSS, AF, A&Ox3. ACS/AR r/o. Cardiopulmonary exam unremarkable. Will asses for cardiac dysarrythmias, thyroid dysfunction, electrolyte abnml, metabolic and toxic derangements, acid-base disturbances, infection. ED Course: CBC,CMP, Cardiac Pr. BNP, UA EKG, CXR 04/05/18 10:43 CTH: No acute change compared to CTH (03/30/18) CXR: Unremarkable 04/05/18 11:26 WBC: 11.3 UA: Unremarkable CMP: Unremarkable 04/05/18 11:37 EKG: NSR with absent acute LEONARD, STD. Q waves lead V2. + LAD. Normal interval duration. Similar to prior EKG (03/29/18). Aldo Garcia PMD contacted answering service. Awaiting call back. 04/05/18 12:[address] Garcia. If patient TSH unremarkable, patient should f/u with PMD outpt. Low suspicion acute process. 04/05/18 12:36 TSH 22.6 (12.6~03/30) 04/05/18 12:41 Trop: Neg 04/05/18 13:07 Discussed patient TSH findings with Dr. Garcia. Agrees she can f/u as outpt. 04/05/18 18:52 Patient endorsed SI, and refuses to go back to facility Pt. discussed with pt. son, , and psychiatrist Dr. Wei who is familiar with pt. and h/o SI in past. 04/05/18 19:00 Agreed that pt. stable for home d/c if she goes with . <Joselito Fisher - Last Filed: 04/05/18 19:01> *DC/Admit/Observation/Transfer <Amos Daigle - Last Filed: 04/05/18 18:33> - Discharge Dispostion Decision to Admit order: No - Attestations Physician Attestion: 04/05/18 11:48 I attest to the information provided in this note. <Joselito Fisher - Last Filed: 04/05/18 19:01> Diagnosis at time of Disposition: Palpitations Depression Qualifiers: Depression Type: other depression Qualified Code(s): F32.89 - Other specified depressive episodes - Discharge Dispostion Condition at time of disposition: Stable - Referrals Referrals: Mary Wei [Other] - Patient Instructions Printed Discharge Instructions: DI for Palpitations Additional Instructions: Follow up with dr. Wei as scheduled. If you have thoughts of harming yourself, please call Dr. Wei or 911. Take your medications as perscribed.
[2018-04-05 10:48] LABS: BASO % 0.7 % (0-2.0); HEMATOCRIT 39.3 % (32.4-45.2); HEMOGLOBIN 12.8 GM/dl (10.7-15.3); LYMPH % 15.3 % (8-40); MCH 27.5 pg (25.7-33.7); MCHC 32.7 g/dl (32.0-36.0); MEAN CELL VOLUME 84.2 fl (80-96); MONO % 6.9 % (3.8-10.2); NEUT % 77.1 % (42.8-82.8); PLATELET COUNT 376 K/MM3 (134-434); RBC 4.66 M/mm3 (3.60-5.2); RDW 15.6 % (11.6-15.6); WHITE BLOOD COUNT 11.3 K/mm3 (4.0-10.8)
[2018-04-05 10:52] LABS: INR 1.03 (0.82-1.09); PROTHROMBIN TIME (PATIENT) 11.5 SEC (10.2-13.0)
[2018-04-05 10:56] LABS: ALBUMIN 4.2 g/dl (3.5-5.0); ALK PHOS 90 U/L (32-92); ANION GAP 8 MMOL/L (8-16); BILIRUBIN,TOTAL 0.8 mg/dl (0.2-1.0); BLOOD UREA NITROGEN 19 mg/dl (7-18); CALCIUM 9.3 mg/dl (8.4-10.2); CHLORIDE 105 mmol/L (98-107); CO2 26 mmol/L (22-28); CREATININE 0.6 mg/dl (0.6-1.3); GLUCOSE,RANDOM 105 mg/dl (74-106); POTASSIUM 3.5 mmol/L (3.5-5.1); SGOT/AST 17 U/L (10-42); SGPT/ALT 10 U/L (10-40); SODIUM 139 mmol/L (136-145); TOT PROT 7.1 g/dl (6.4-8.3)
[2018-04-05 10:59] LABS: PH,URINE 6.5 (4.5-8); URINE APPEARANCE Clear; URINE BILIRUBIN Negative (NEGATIVE); URINE COLOR Amber; URINE GLUCOSE (UA) Negative (NEGATIVE); URINE KETONE 1+ (NEGATIVE); URINE LEUK ESTERASE Negative (NEGATIVE); URINE NITRITE Negative (NEGATIVE); URINE PROTEIN 2+ (NEGATIVE); URINE UROBILINOGEN 0.2 (0.2-1.0)
[2018-04-05 11:14] LABS: EPI CELLS FEW /HPF
[2018-04-05 12:21] LABS: N-TERMINAL BNP 246.9 pg/ml (5-450)
[2018-04-05 19:14] VITALS: TEMP 97.8
[2018-04-05 19:32] VITALS: BP 132/59; PULSE 81
--- NOTE | 2018-04-06 10:13 | EKG ---
Test Reason : Blood Pressure : / mmHG Vent. Rate : 077 BPM Atrial Rate : 077 BPM P-R Int : 148 ms QRS Dur : 096 ms QT Int : 402 ms P-R-T Axes : 054 -32 078 degrees QTc Int : 454 ms NORMAL SINUS RHYTHM LEFT AXIS DEVIATION SEPTAL INFARCT (CITED ON OR BEFORE 30-NOV-2016) ABNORMAL ECG WHEN COMPARED WITH ECG OF 29-MAR-2018 18:51, QUESTIONABLE CHANGE IN INITIAL FORCES OF ANTERIOR LEADS NON-SPECIFIC CHANGE IN ST SEGMENT IN LATERAL LEADS Confirmed by RJ JOE, GABY ([id number]) on 04/06/2018 10:12:57 AM Referred By: DR HERNANDEZ Confirmed By:GABY DE LA ROSA MD
== END 2018-04-05 19:00 | disposition home or self-care (01) ==
LOC: FER 09:40
DX: R00.2 Palpitations (principal); F32.89 Other specified depressive episodes; I10 Essential (primary) hypertension; E03.9 Hypothyroidism, unspecified; F41.9 Anxiety disorder, unspecified; I25.2 Old myocardial infarction; I25.10 Atherosclerotic heart disease of native coronary artery without angina pectoris
CPT/HCPCS: 36415; 70450-TC; 71046-TC-FY; 80053; 81003; 81015; 82550; 82553; 83880; 84443; 84484; 85025; 85610; 93005; 99285-25

== ENCOUNTER 2021-01-03 14:23 | Emergency (ER) | payer OTHER ==
[2021-01-03] MEDS ORDERED: ALBUTEROL SO4 2.5/IPRATROPIUM 0.5 INH SOL 3 ML VIAL.NEB. NEB ONE ×2 (14:37→15:09)
[2021-01-03 15:06] VITALS: TEMP 97.7; BMI 18.5
[2021-01-03 15:10] LABS: BASO % 2.4 % (0-2.0); HEMATOCRIT 42.5 % (32.4-45.2); HEMOGLOBIN 13.9 GM/dl (10.7-15.3); LYMPH % 23.5 % (8-40); MCH 29.1 pg (25.7-33.7); MCHC 32.7 g/dl (32.0-36.0); MEAN CELL VOLUME 88.8 fl (80-96); MEAN PLT VOLUME 7.6 fl (7.5-11.1); MONO % 5.4 % (3.8-10.2); NEUT % 68.7 % (42.8-82.8); PLATELET COUNT 311 10^3/uL (134-434); RBC 4.78 M/mm3 (3.60-5.2); RDW 13.3 % (11.6-15.6); WHITE BLOOD COUNT 6.4 K/mm3 (4.0-10.8)
[2021-01-03 15:20] LABS: ACTIVATED PTT 33.4 SECONDS (25.2-36.5)
[2021-01-03 15:21] LABS: ALBUMIN 3.8 g/dl (3.4-5.0); BILIRUBIN,TOTAL 0.8 mg/dl (0.2-1); CALCIUM 9.1 mg/dl (8.5-10); CREATININE 0.8 mg/dl (0.55-1.3); TOT PROT 6.5 g/dl (6.4-8.2)
[2021-01-03 15:25] LABS: INR 0.98 (0.82-1.09)
[2021-01-03 16:11] LABS: VENOUS BASE EXCESS -5.8 mmol/L (-2-2); VENOUS O2 SATURATION 91.9 % (70-80); VENOUS PCO2 42.1 mmHg (38-52); VENOUS PH 7.301 (7.310-7.410)
[2021-01-03] MEDS ORDERED: ALBUTEROL SO4 HFA INHALER IH ONE (17:32)
[2021-01-03] MEDS ORDERED: SODIUM CHLORIDE 0.9% 500 ML INFUS.BAG IV ONE (17:45)
[2021-01-03 17:48] VITALS: BP 112/71; PULSE 84
[2021-01-03] MEDS ORDERED: AZITHROMYCIN 250 MG TABLET PO ONE (17:48)
[2021-01-03] MEDS ORDERED: AZITHROMYCIN 250 MG TABLET ONE (17:51)
== END 2021-01-03 18:44 | disposition home or self-care (01) ==
LOC: FER 14:23
PROC: 3E0F7GC Introduction of Other Therapeutic Substance into Respiratory Tract, Via Natural or Artificial Opening (ICD-10-PCS; principal; 2021-01-03)
DX: J40 Bronchitis, not specified as acute or chronic (principal)
CPT/HCPCS: 36415; 71045-TC-FY; 80053; 82550; 82803; 84484; 85025; 85610; 85730; 87804; 87880; 93005; 99284-25; C9803; U0003; U0005